=== PATIENT | female | born 1945 | race Caucasian/White ===

== ENCOUNTER → 2016-11-11 | Outpatient (CLI) | payer OTHER ==
[2016-11-11 07:47] LABS: BLOOD GAS BASE EXCESS -1.9 mmol/L (-2-2); BLOOD GAS CARBOXYHEMOGLOBIN 1.6 % (0-4); BLOOD GAS HCO3 22 mmol/L (22-26); BLOOD GAS O2 HGB SATURATION 93 % (90-100); BLOOD GAS PCO2 35 mmHG (38-42); BLOOD GAS PO2 79 mmHG (61-120); BLOOD GAS TOTAL HGB 13.7 G/DL (12.0-16.0); CRITICAL VALUE NO; FIO2 21 %; TEMP CORR TO 98.6
[2016-11-11 07:48] LABS: DRAW SITE RT RADIAL; NUMBER OF ARTERIAL PUNCTURES 1; STAT NO; ULNAR PULSE PRESENT
--- NOTE | 2016-11-12 09:30 | RSPPFT ---
DATE OF PROCEDURE: 11/11/16 COMMENTS: Spirometry with FVC 1.7 at 64% of predicted, FEV1 of 1.4 at 66%, FEV1/FVC ratio is normal. Flow is normal at FEF 25, FEF 50, FEF 75 and FEF 25-75. There is no response after bronchodilator treatment. Lung volumes show residual volume is normal. TLC is decreased. Diffusion capacity is severely decreased. Flow volume loop indicates a restrictive pattern. Room air arterial blood gases show pH of 7.42, PCO2 of 35, PO2 of 79, BiCarb of 22 and O2 Saturation of 93%. 6-minute walk test shows de-saturation with exertion. IMPRESSION: 1. Mild restrictive lung disease. 2. No response after bronchodilator treatment. 3. Lung volumes are slightly decreased. 4. Severe loss in diffusion capacity. 5. Blood gases show normal oxygenation. 6. De-saturation with ambulation.
== END ==
LOC: PHRSP 07:33
PROVIDERS: ATTEND Specialist
DX: J84.10 Pulmonary fibrosis, unspecified (principal)
CPT/HCPCS: 36600; 82805; 94060; 94620; 94726; 94729

== ENCOUNTER 2017-09-21 12:26 | Observation (INO) ==
--- NOTE | 2017-09-21 13:22 | ED ---
HPI General Chief Complaint: Respiratory Symptoms Stated Complaint: SOB Time Seen by Provider: 09/21/17 12:55 Source: patient, RN notes reviewed and old records reviewed Mode of arrival: ambulatory Limitations: no limitations History of Present Illness 72 year old female presents to the emergency department for evaluation of sob, worse with exertion and laying flat that started approximately a month ago. Patient states she was sent by her trampoline team coach, Dr. White to see thoracic surgeon , but does not know the name of who was going to see her. Patient states that she needs an aortic valve replacement. She states that she had a pig valve replacement back in 2010, but is no longer working appropriately. The patient states that she just got clearance from her buffet waiter/waitress, Dr. Francis to have surgery. States she saw her trampoline team coach today who referred her to the emergency department. Patient states that her oxygen level has been going down to 8780% at night. She denies any pain. No fevers or chills. MD Complaint: shortness of breath Onset (ago): month(s) (1) Severity: moderate Consistency/Duration: progressively worsening Relieving factors: rest and upright position Exacerbating factors: lying flat and exertion Known history of: other (valve disease) Related Data Allergies Allergy/AdvReac Type Severity Reaction Status Date / Time No Allergy Information Allergy Unverified 09/21/17 13:12 Available [facility] Medical History Medical History Breast cancer (Acute) Pulmonary fibrosis (Acute) Shortness of breath (Acute) Sleep apnea (Acute) Surgical History Surgical History Aortic valve replaced (Acute) Social History Social History Substance History: No History of Abuse Second Hand Smoke Exposure: No Smoking Status: Never smoker How Often Do You Have a Drink Containing Alcohol: 2 to 4 times a month Recent Travel in [facility] within the Last 8 Weeks: No Recent Out of Country Travel within the Last 8 Weeks: No Immunization History Tetanus Immunization: Unsure Hx Influenza Vaccine This Season: Yes Exam Narrative Exam Narrative: GENERAL: Well-nourished, well-developed female patient, afebrile SKIN: Focused skin assessment warm/dry. HEAD: Normocephalic. Atraumatic EYES: No scleral icterus. No injection or drainage. NECK: Supple, trachea midline. No JVD or lymphadenopathy. CARDIOVASCULAR: Regular rate and rhythm without murmurs, gallops, or rubs. RESPIRATORY: Breath sounds equal bilaterally. No accessory muscle use. Lung sounds are clear to auscultation GASTROINTESTINAL: Abdomen soft, non-tender, nondistended. MUSCULOSKELETAL: No cyanosis, or edema. BACK: Nontender without obvious deformity. No CVA tenderness. Course Initial Documented Vital Signs Temperature 98.2 F 09/21/17 12:39 Pulse Rate 93 H 09/21/17 12:39 Respiratory Rate 18 09/21/17 12:39 Blood Pressure 166/78 H 09/21/17 12:39 Pulse Oximetry 95 09/21/17 12:39 Last Documented Vital Signs Temperature 98.2 F 09/21/17 12:39 Pulse Rate 84 09/21/17 12:43 Respiratory Rate 18 09/21/17 12:43 Blood Pressure 153/82 H 09/21/17 12:43 Pulse Oximetry 97 09/21/17 12:43 Medical Decision Making NEDA Attestation NEDA supervised visit: Yes Attestation: I, Dr. dugan, have reviewed the advance practice practitioner's documentation and am in agreement, met with the patient face to face, made the diagnosis, and the medical decision making was done by me. *My assessment and Findings: 72 y/o female presents with shortness of breath. Outpatient note of critical aortic stenosis. Sent here for further evaluation. Workup reveals significantly elevated troponin. Patient given aspirin and currently pain-free. Discussed with her trampoline team coach and will admit for further care. Patient agrees to plan [facility] Narrative Medical decision making narrative: 72 year old female presents to the emergency department for dyspnea sent by her trampoline team coach, Dr. White. EKG, CBC, CMP, CK, Troponin, Magnesium, BNP, PTT, PT/INR, chest x-ray are ordered and pending. A call is placed to Dr. White. I spoke with the nurse practitioner for Dr. White. She states the patient has severe and needs to be admitted to the hospital with a consult to Dr. Gold ( trampoline team coach executive compensation analyst). Dr. Gold is aware of the patient according to her. EKG shows SR, HR 80, no STEMI, inverted t waves in I, avl. CBC shows slight leukocytosis of . CMP shows no acute abnormality. Magnesium is 2.4. CK is 53. Troponin is 0.95. BNP is 200. PTT is 21.6. PT/INR is 9.9/1.0. Chest x- ray shows no acute findings. Patient is given ASA 324 mg PO and nitro paste 1 inch. Hospitalist is paged for admission. Dr. Shell accepted admission. Differential Diagnosis Differential Diagnosis: CHF vs. ACS vs. pneumonia vs. COPD Medical Records Medical records reviewed: Yes I reviewed the patient's medical records. Lab Data Result diagrams: 09/21/17 13:18 09/21/17 13:18 Lab Results 09/21/17 09/21/17 09/21/17 Range/Units 13:18 13:18 13:18 WBC 11.2 H (4.0-11.0) th/mm3 RBC 4.07 (4.00-5.30) mil/mm3 Hgb 13.5 (11.6-15.3) gm/dL Hct 40.0 (35.0-46.0) % MCV 98.3 (80.0-100.0) fL MCH 33.2 (27.0-34.0) pg MCHC 33.8 (32.0-36.0) % RDW 14.4 (11.6-17.2) % Plt Count 247 (150-450) th/mm3 MPV 9.5 (7.0-11.0) fL Neut % (Auto) 73.1 H (16.0-70.0) % Lymph % (Auto) 16.1 (9.0-44.0) % Snyder % (Auto) 7.7 (0.0-8.0) % Eos % (Auto) 2.1 (0.0-4.0) % Baso % (Auto) 1.0 (0.0-2.0) % Neut # (Auto) 8.2 H (1.8-7.7) th/mm3 Lymph # (Auto) 1.8 (1.0-4.8) th/mm3 Snyder # (Auto) 0.9 (0.0-0.9) th/mm3 Eos # (Auto) 0.2 (0.0-0.4) th/mm3 Baso # (Auto) 0.1 (0.0-0.2) th/mm3 WBC Differential . Differential Comment Auto diff final PT 9.9 (9.8-11.6) sec INR 1.0 Ratio APTT 21.6 L (24.3-30.1) sec Sodium 142 (136-145) meq/L Potassium 4.2 (3.5-5.1) meq/L Chloride 107 (98-107) meq/L Carbon Dioxide 25.1 (21.0-32.0) meq/L Anion Gap 10 (5-15) meq/L BUN 13 (7-18) mg/dL Creatinine 0.95 (0.50-1.00) mg/dL Estimated GFR 58 L (>89) mL/min Random Glucose 93 (74-106) mg/dL Calcium 9.1 (8.5-10.1) mg/dL Magnesium (1.5-2.5) mg/dL Total Bilirubin 0.5 (0.2-1.0) mg/dL AST 24 (15-37) U/L ALT 21 (10-53) U/L Alkaline Phosphatase 135 H (45-117) U/L Total Creatine Kinase (26-192) U/L Troponin I 0.95 H* (0.02-0.05) ng/mL B-Natriuretic Peptide (0-100) pg/mL Total Protein 7.2 (6.4-8.2) g/dL Albumin 3.8 (3.4-5.0) g/dL 09/21/17 09/21/17 Range/Units 13:18 13:18 WBC (4.0-11.0) th/mm3 RBC (4.00-5.30) mil/mm3 Hgb (11.6-15.3) gm/dL Hct (35.0-46.0) % MCV (80.0-100.0) fL MCH (27.0-34.0) pg MCHC (32.0-36.0) % RDW (11.6-17.2) % Plt Count (150-450) th/mm3 MPV (7.0-11.0) fL Neut % (Auto) (16.0-70.0) % Lymph % (Auto) (9.0-44.0) % Snyder % (Auto) (0.0-8.0) % Eos % (Auto) (0.0-4.0) % Baso % (Auto) (0.0-2.0) % Neut # (Auto) (1.8-7.7) th/mm3 Lymph # (Auto) (1.0-4.8) th/mm3 Snyder # (Auto) (0.0-0.9) th/mm3 Eos # (Auto) (0.0-0.4) th/mm3 Baso # (Auto) (0.0-0.2) th/mm3 WBC Differential Differential Comment PT (9.8-11.6) sec INR Ratio APTT (24.3-30.1) sec Sodium (136-145) meq/L Potassium (3.5-5.1) meq/L Chloride (98-107) meq/L Carbon Dioxide (21.0-32.0) meq/L Anion Gap (5-15) meq/L BUN (7-18) mg/dL Creatinine (0.50-1.00) mg/dL Estimated GFR (>89) mL/min Random Glucose (74-106) mg/dL Calcium (8.5-10.1) mg/dL Magnesium 2.4 (1.5-2.5) mg/dL Total Bilirubin (0.2-1.0) mg/dL AST (15-37) U/L ALT (10-53) U/L Alkaline Phosphatase (45-117) U/L Total Creatine Kinase 53 (26-192) U/L Troponin I (0.02-0.05) ng/mL B-Natriuretic Peptide 200 H (0-100) pg/mL Total Protein (6.4-8.2) g/dL Albumin (3.4-5.0) g/dL Imaging Data Radiologist's impression: Chest X-Ray 09/21/17 13:12 CONCLUSION: No acute findings. Discharge Plan Discharge Disposition Patient Disposition: 30 Still Patient Discharge Details Diagnosis: Aortic stenosis, Elevated troponin Physicians Team ED Provider: Nelsy Dugan ED Midlevel Provider: Melly Mckay Primary Care Provider: UNKNOWN, Status ED Status: Admitted Patient
[2017-09-21 13:32] LABS: Baso # (Auto) 0.1 th/mm3 (0.0-0.2); Eos # (Auto) 0.2 th/mm3 (0.0-0.4); Eos % (Auto) 2.1 % (0.0-4.0); Hemoglobin 13.5 gm/dL (11.6-15.3); Lymph # (Auto) 1.8 th/mm3 (1.0-4.8); Lymph % (Auto) 16.1 % (9.0-44.0); Mean Corpuscular HGB Conc 33.8 % (32.0-36.0); Mean Corpuscular Hemoglobin 33.2 pg (27.0-34.0); Mean Corpuscular Volume 98.3 fL (80.0-100.0); Mean Platelet Volume 9.5 fL (7.0-11.0); Mono # (Auto) 0.9 th/mm3 (0.0-0.9); Mono % (Auto) 7.7 % (0.0-8.0); Neut # (Auto) 8.2 th/mm3 (1.8-7.7); Neut % (Auto) 73.1 % (16.0-70.0); Platelet Count 247 th/mm3 (150-450); Red Blood Count 4.07 mil/mm3 (4.00-5.30); Red Cell Distribution Width 14.4 % (11.6-17.2); White Blood Count 11.2 th/mm3 (4.0-11.0)
[2017-09-21 13:58] LABS: Activated Partial Thrombo Time 21.6 sec (24.3-30.1); Prothrombin Time 9.9 sec (9.8-11.6)
[2017-09-21 14:04] LABS: Alanine Aminotransferase 21 U/L (10-53); Albumin 3.8 g/dL (3.4-5.0); Alkaline Phosphatase 135 U/L (45-117); Anion Gap 10 meq/L (5-15); Aspartate Aminotransferase 24 U/L (15-37); Blood Urea Nitrogen 13 mg/dL (7-18); Calcium 9.1 mg/dL (8.5-10.1); Carbon Dioxide 25.1 meq/L (21.0-32.0); Chloride 107 meq/L (98-107); Glomerular Filtration Rate 58 mL/min (>89); Glucose,Random 93 mg/dL (74-106); Sodium 142 meq/L (136-145); Total Protein 7.2 g/dL (6.4-8.2)
[2017-09-21 14:05] LABS: Magnesium 2.4 mg/dL (1.5-2.5); Potassium 4.2 meq/L (3.5-5.1)
[2017-09-21 14:06] LABS: Troponin I 0.95 ng/mL (0.02-0.05)
--- NOTE | 2017-09-21 14:55 | XR ---
EXAM DATE: 09/21/2017 2:20 PM EDT AGE/SEX: 72 years / Female INDICATIONS: Short of breath. Patient complains of cough and shortness of breath. CLINICAL DATA: This is the patient's initial encounter. Patient reports that signs and symptoms have been present for 1 month and indicates a pain score of 5/10. MEDICAL/SURGICAL HISTORY: . Pulmonary Fibrosis. CABG. Open heart in 2010. COMPARISON: POI, XR CHEST PA AND LAT, 07/26/2017. . FINDINGS: Cardiomegaly and median sternotomy wires are identified. There is minimal scarring in the left mid an d left lower lung zones. No consolidation or effusion. . CONCLUSION: No acute findings. Electronically signed by: Chris Lai MD 09/21/2017 2:53 PM EDT
[2017-09-21] MEDS ORDERED: Bisacodyl 10 MG Supp RECTAL PRN (15:39)
[2017-09-21] MEDS ORDERED: Acetaminophen 325 MG Tablet PO PRN (15:39)
[2017-09-21] MEDS ORDERED: Naloxone Inj 0.4 MG/ML Vial IV.PUSH PRN (15:42)
[2017-09-21] MEDS ORDERED: Morphine Sulfate Inj 2 MG/ML Vial IV.PUSH PRN (15:42)
[2017-09-21] MEDS ORDERED: oxyCODONE/Acetaminophen 10/325 Tablet PO PRN (15:42)
[2017-09-21] MEDS ORDERED: Morphine Inj 4 MG/ML Vial IV.PUSH PRN ×2 (15:42)
--- NOTE | 2017-09-21 18:22 | P.HPIM ---
History of Present Illness Service: [facility] Primary Care Physician: UNKNOWN Chief Complaint: Worsening shortness of breath History of Present Illness: Patient is a 72-year-old female who presented emergency department for evaluation of worsening shortness of breath that has been worsened with exertion and worse with lying flat that has been going on for at least the past month. Patient states she was seen by her food production supervisor Dr. White who recommended that she come to the hospital. She was recommended to come to the hospital to see a thoracic surgeon. Patient states she knows she needs an aortic valve replacement. She had previously had a pig valve replacement back in 2010. But this is not working as well anymore. She had a bronchoscopy with Dr. MAIER service, who states that she was the best she is going to be to have any procedures. Patient has recently been diagnosed with pulmonary fibrosis. As well as has recently been treated for breast cancer with radiation. Patient has been seen by myself as well as cardiology today. Has been noted to have decreased oxygenation. This been moderate. And progressively worsening it is relieving with rest and sitting upright. It is worse by laying flat and exertion. Has a known history of aortic valve issues. Past medical history significant for breast cancer as well as pulmonary fibrosis and chronic shortness of breath and sleep apnea. Patient is also recently had cardiac catheterization with clean coronaries. Inpatient Certification: I certify that the inpatient services were ordered in accordance with Medicare regulations governing the order. This includes certification that hospital inpatient services are reasonable and necessary and in the case of services not specified as inpatient-only under 42 CFR 419.22(n), that they are appropriately provided as inpatient services in accordance to with the 2-midnight benchmark under 43 CFR 412.3(e) Estimated Total Length of Stay (Days): 4 Plans for Post Hospital Care: Not yet determined Review of Systems All other systems reviewed negative except as stated in HPI [facility] - History History Provided By: Patient - Medical History Medical History: Medical History (Last Updated 09/21/17 @ 12:55 by Tomasz Sepulveda) Breast cancer Pulmonary fibrosis Shortness of breath Sleep apnea - Surgical History Surgical History: Surgical History (Last Updated 09/21/17 @ 12:55 by Tomasz Sepulveda) Aortic valve replaced - Family History Family History: Family History (Last Updated 09/21/17 @ 18:09 by Alan Shell DO) Other Family history of hypertension - Tobacco History Second Hand Smoke Exposure: No Tobacco Use In Past 30 Days: No Smoking Status: Never smoker - Alcohol History How Often Do You Have a Drink Containing Alcohol: 2 to 4 times a month - Substance Use History Substance History: No History of Abuse - Travel History History of Recent Travel: No Recent Travel in the [place] Within the Last 8 Weeks: No Recent Travel Out of the Country Within the Last 8 Weeks: No - Immunization History Tetanus Immunization: Unsure Hx Influenza Vaccine This Season: Yes Medications and Allergies Active Medications: Active Medications Acetaminophen (Tylenol) 650 mg PO Q4H PRN PRN Reason: Temp > 100.4 Al Hydroxide/Mg Hydroxide (Milk Of Magnesia Liq) 30 ml PO Q12H PRN PRN Reason: Mild Constipation Aspirin (Aspirin) 325 mg PO DAILY PREM Bisacodyl (Dulcolax Supp) 10 mg RECTAL DAILY PRN PRN Reason: SEVERE CONSITIPATION Famotidine (Pepcid) 20 mg PO BID PREM Lactulose (Lactulose Liq) 30 ml PO DAILY PRN PRN Reason: SEVERE CONSITIPATION Morphine Sulfate (Morphine Inj) 2 mg IV.PUSH Q3H PRN PRN Reason: PAIN 3-5; IF UABLE TO TAKE PO Morphine Sulfate (Morphine Inj) 4 mg IV.PUSH Q3H PRN PRN Reason: PAIN 6-10;IF UNABLE TO TAKE PO Morphine Sulfate (Morphine Inj) 4 mg IV.PUSH Q3H PRN PRN Reason: BREAKTHROUGH PAIN Naloxone HCl (Narcan Inj) 0.4 mg IV.PUSH UNSCH PRN PRN Reason: SEE LABEL COMMENTS Nitroglycerin (Nitro-Bid 2% Oint) 1 inch TOPICAL Q6HR [facility] Last Admin: 09/21/17 17:01 Dose: Not Given Nitroglycerin (Nitrostat Sl) 0.4 mg SL Q5M PRN PRN Reason: ANGINA Ondansetron HCl (Zofran Odt) 4 mg PO Q6H PRN PRN Reason: NAUSEA/VOMITING Oxycodone/Acetaminophen (Percocet 10/325 Mg) 1 tab PO Q6H PRN PRN Reason: PAIN SCALE 6 TO 10 Oxycodone/Acetaminophen (Percocet 5/325 Mg) 1 tab PO Q6H PRN PRN Reason: PAIN SCALE 3 TO 5 Senna/Docusate Sodium (Andria-Colace) 1 tab PO BID [facility] Sennosides (Senokot) 17.2 mg PO Q12H PRN PRN Reason: Moderate Constipation Sodium Chloride (Ns Flush) 2 ml IV.FLUSH BID PREM Sodium Chloride (Ns Flush) 2 ml IV.FLUSH PRN PRN PRN Reason: FLUSH AFTER USING IV ACCESS Temazepam (Restoril) 15 mg PO HS PRN PRN Reason: INSOMNIA Allergies Allergy/AdvReac Type Severity Reaction Status Date / Time No Allergy Information Allergy Unverified 09/21/17 13:12 Available Home Medications Medication Instructions Recorded Confirmed Type rivaroxaban [Xarelto] 15 mg PO DAILY 09/21/17 09/21/17 History Exam Vital signs: Vital Signs 09/21/17 12:39 09/21/17 12:43 09/21/17 16:26 Temperature 98.2 F Pulse Rate 93 H 84 83 Respiratory Rate 18 18 18 Blood Pressure 166/78 H 153/82 H 126/78 Pulse Oximetry 95 97 99 09/21/17 16:27 Temperature Pulse Rate Respiratory Rate Blood Pressure Pulse Oximetry 99 Intake & Output 09/20/17 09/21/17 09/21/17 18:59 06:59 18:59 Weight 77.564 kg Narrative: GENERAL: Awake alert and oriented talkative and cooperative appears to be in some moderate distress SKIN: Warm and dry. HEAD: Atraumatic. Normocephalic. EYES: Pupils equal and round. No scleral icterus. No injection or drainage. EOMI ENT: No nasal bleeding or discharge. Mucous membranes pink and moist. Tongue is midline NECK: Trachea midline. No JVD. CARDIOVASCULAR: Regular rate and rhythm. S1-S2 no S3 or S4.. 3 out of 6 murmur RESPIRATORY: No accessory muscle use. Some coarse breath sounds bilaterally. breath sounds equal bilaterally. GASTROINTESTINAL: Abdomen soft, non-tender, nondistended. Hepatic and splenic margins not palpable. MUSCULOSKELETAL: Extremities without clubbing, cyanosis, or edema. No obvious deformities. NEUROLOGICAL: Awake and alert. No obvious cranial nerve deficits. Motor grossly within normal limits. Five out of 5 muscle strength in the arms and legs. Normal speech. PSYCHIATRIC: Appropriate mood and affect; insight and judgment normal. Results - Labs CBC & Chem 7: 09/21/17 13:18 09/21/17 13:18 Labs: Short CBC 07/31/18 Range/Units 13:18 WBC 11.2 H (4.0-11.0) th/mm3 Hgb 13.5 (11.6-15.3) gm/dL Hct 40.0 (35.0-46.0) % Plt Count 247 (150-450) th/mm3 BMP 09/21/17 13:18 Sodium 142 Potassium 4.2 Chloride 107 Carbon Dioxide 25.1 BUN 13 Creatinine 0.95 Calcium 9.1 Cardiac Enzymes 09/21/17 09/21/17 Range/Units 13:18 13:18 Total Creatine Kinase 53 (26-192) U/L Troponin I 0.95 H* (0.02-0.05) ng/mL Liver Function 09/21/17 Range/Units 13:18 Total Bilirubin 0.5 (0.2-1.0) mg/dL AST 24 (15-37) U/L ALT 21 (10-53) U/L Alkaline Phosphatase 135 H (45-117) U/L Albumin 3.8 (3.4-5.0) g/dL - Imaging Impressions Chest X-Ray 09/21/17 13:12 CONCLUSION: No acute findings. Caprini VTE Risk Assessment Caprini VTE Risk Assessment: Moderate/High Risk (score >= 2) Caprini Risk Assessment Model: Point Value = 1 Point Value = 2 Point Value = 3 Point Value = 5 Age 41-60 Minor surgery BMI > 25 kg/m2 Swollen legs Varicose veins or History of unexplained or recurrent spontaneous Oral contraceptives or hormone replacement Sepsis (< 1 month) Serious lung disease, including pneumonia (< 1 month) Abnormal pulmonary function Acute myocardial infarction Congestive heart failure (< 1 month) History of inflammatory bowel disease Medical patient at bed rest Age 61-74 Arthroscopic surgery Major open surgery (> 45 min) Laparoscopic surgery (> 45 min) Malignancy Confined to bed (> 72 hours) Immobilizing plaster cast Central venous access Age >= 75 History of VTE Family history of VTE Factor V Leiden Prothrombin [id number] Lupus anticoagulant Anticardiolipin antibodies Elevated serum homocysteine Heparin-induced thrombocytopenia Other congenital or acquired thrombophilia Stroke (< 1 month) Elective arthroplasty Hip, pelvis, or leg fracture Acute spinal cord injury (< 1 month) Prophylaxis Regimen: Total Risk Factor Score Risk Level Prophylaxis Regimen 0-1 Low Early ambulation 2 Moderate Order ONE of the following: *Sequential Compression Device (SCD) *Heparin 5000 units SQ BID 3-4 Higher Order ONE of the following medications: *Heparin 5000 units SQ TID *Enoxaparin/Lovenox 40 mg SQ daily (WT < 150 kg, CrCl > 30 mL/min) *Enoxaparin/Lovenox 30 mg SQ daily (WT < 150 kg, CrCl > 10-29 mL/min) *Enoxaparin/Lovenox 30 mg SQ BID (WT < 150 kg, CrCl > 30 mL/min) AND/OR *Sequential Compression Device (SCD) 5 or more Highest Order ONE of the following medications: *Heparin 5000 units SQ TID (Preferred with Epidurals) *Enoxaparin/Lovenox 40 mg SQ daily (WT < 150 kg, CrCl > 30 mL/min) *Enoxaparin/Lovenox 30 mg SQ daily (WT < 150 kg, CrCl > 10-29 mL/min) *Enoxaparin/Lovenox 30 mg SQ BID (WT < 150 kg, CrCl > 30 mL/min) AND *Sequential Compression Device (SCD) Assessment and Plan - Plan Severe aortic stenosis will consult cardiology as well as cardiovascular surgery patient may be a candidate for TAVR Pulmonary fibrosis continue on neb treatments as needed and oxygen and Mucinex Congestive heart failure due to severe aortic stenosis Lasix Mild leukocytosis a.m. labs Elevated troponin trend troponins will get a repeat echo I did discuss with cardiology Sleep apnea with chronic oxygen use Incentive spirometry Dyspnea continue with oxygen and Mucinex duo nebs History of breast cancer recently treated with radiation Code Status: Full code Discussed Condition With: RN and patient and emergency room physician and cardiology Discharge Planning: Pending cardiology clearance and cardiovascular surgery
--- NOTE | 2017-09-21 19:33 | MB ---
cc: Jimenez Gold MD, Aalok DATE: 09/21/2017 REFERRING PHYSICIAN: Dr. Alan Shell. CHIEF COMPLAINT: Worsening shortness of breath. HISTORY OF PRESENT ILLNESS: Mrs. Melissa Castro is a very pleasant 72-year-old female. She has a past medical history of severe symptomatic aortic stenosis, status post a bioprosthetic aortic valve in 2010, pulmonary fibrosis, obstructive sleep apnea, history of breast cancer. She has been having progressive worsening dyspnea. I received contact from Dr. White from [facility] and, according to Dr. White, the patient had a normal coronary angiogram approximately 2 weeks ago; however, a transesophageal echocardiogram revealed severe degenerative bioprosthetic aortic valve disease with an aortic valve area of 0.4. The records are currently not available for review. She also has a history of pulmonary fibrosis and has been following with pulmonology. The patient reports that despite multiple readmissions over the past month for shortness of breath where she was diuresed and treated with bronchodilators and underwent a bronchoscopy, she continues to be short of breath. Cardiac workup has revealed that she has now degenerative bioprosthetic aortic valve disease and subsequently she is being referred here for further workup and evaluation. Currently, the patient is on nasal cannula and complains of shortness of breath. PAST MEDICAL HISTORY: 1. Severe symptomatic aortic stenosis. 2. Pulmonary fibrosis. 3. Obstructive sleep apnea. PAST SURGICAL HISTORY: She has a history of a bioprosthetic aortic valve replacement in 2010 (valve type not known currently). FAMILY HISTORY: No sudden cardiac . SOCIAL HISTORY: Occasional alcohol use, nonsmoker. MEDICATIONS AND ALLERGIES: Reviewed in the electronic medical records. PHYSICAL EXAMINATION: VITAL SIGNS: Blood pressure 126/78, heart rate of 83. GENERAL: She is on nasal cannula and appears to be anxious. HEENT: Eyes: No scleral icterus. Oropharynx: Moist mucous membranes. CARDIOVASCULAR: Regular rate and rhythm. Normal S1. There is a 3/6 systolic ejection murmur obscuring S2. LUNGS: Coarse breath sounds at the base of the lungs. ABDOMEN: Soft, nontender, nondistended. EXTREMITIES: Trace edema. NEUROLOGIC: Alert and oriented x3. PSYCHIATRIC: Appropriate affect. LABORATORY DATA: Reviewed in the electronic medical record. Creatinine 0.95. Troponin is 0.95. IMAGING STUDIES: Chest x-ray: No acute findings. ASSESSMENT: 1. Severe degenerative bioprosthetic aortic valve stenosis. 2. Pulmonary fibrosis on nebulizer therapy. 3. Valvular cardiomyopathy. 4. History of recent coronary angiogram that did not show obstructive coronary artery disease. PLAN: I discussed the patient with Dr. White. We will plan to gently diurese the patient, as she has a history of hypotension in the past. We will continue her pulmonary medications as well. We would like to obtain records from [facility] to complete a transcatheter aortic valve replacement workup. I will contact our cardiovascular surgeons and proceed with a heart team approach. We will need a CT chest abdomen and pelvis. I do not believe her elevated troponin is a result of an ischemia driven event and, as such, would not proceed with a repeat coronary angiogram at this time. We will have to assess her candidacy. Thank you for allowing us to participate in the care of Melissa Castro. Please feel free to contact us with any further questions regarding her care. MD KENNEDY Evangelista/ , 06:50 PM , 06:59 PM
[2017-09-21] MEDS ORDERED: Temazepam 15 MG Capsule PO PRN (21:00)
[2017-09-21] MEDS: Senna/Docusate Sodium 8.6/50 MG Tablet PO SCH (21:12)
[2017-09-21] MEDS: guaiFENesin 600 MG ER Tablet PO SCH (21:12)
[2017-09-21] MEDS: Famotidine 20 MG Tablet PO SCH (21:12)
[2017-09-21 21:27] LABS: Troponin I 0.87 ng/mL (0.02-0.05)
[2017-09-22 04:46] LABS: Bilirubin,Urine Negative (Negative); Clarity,Urine Clear (Clear); Color,Urine Yellow (Yellw/Straw); Glucose,Urine (UA) Negative (Negative); Hyaline Casts,Urine 1 /lpf (0-3); Leukocyte Esterase,Urine Negative (Negative); Mucus,Urine Few /lpf (Occasional); Nitrite,Urine Negative (Negative); Specific Gravity,Urine 1.017 (1.002-1.035); Squamous Epithelial Cell,Urine 2 /hpf (0-5)
[2017-09-22 06:20] LABS: Baso # (Auto) 0.1 th/mm3 (0.0-0.2); Baso % (Auto) 1.2 % (0.0-2.0); Eos # (Auto) 0.4 th/mm3 (0.0-0.4); Eos % (Auto) 3.8 % (0.0-4.0); Hematocrit 36.7 % (35.0-46.0); Hemoglobin 12.6 gm/dL (11.6-15.3); Lymph # (Auto) 2.4 th/mm3 (1.0-4.8); Lymph % (Auto) 23.4 % (9.0-44.0); Mean Corpuscular HGB Conc 34.3 % (32.0-36.0); Mean Corpuscular Hemoglobin 33.8 pg (27.0-34.0); Mean Corpuscular Volume 98.7 fL (80.0-100.0); Mean Platelet Volume 9.6 fL (7.0-11.0); Mono # (Auto) 0.8 th/mm3 (0.0-0.9); Neut # (Auto) 6.5 th/mm3 (1.8-7.7); Neut % (Auto) 63.6 % (16.0-70.0); Platelet Count 230 th/mm3 (150-450); Red Blood Count 3.72 mil/mm3 (4.00-5.30); Red Cell Distribution Width 14.4 % (11.6-17.2); White Blood Count 10.2 th/mm3 (4.0-11.0)
[2017-09-22 06:53] LABS: Alanine Aminotransferase 17 U/L (10-53); Alkaline Phosphatase 124 U/L (45-117); Blood Urea Nitrogen 14 mg/dL (7-18); Free T4 (Free Thyroxine) 1.01 ng/dL (0.76-1.46); Phosphorus 4.5 mg/dL (2.5-4.9); Total Protein 6.9 g/dL (6.4-8.2)
[2017-09-22 07:02] LABS: Albumin 3.5 g/dL (3.4-5.0); Anion Gap 8 meq/L (5-15); Aspartate Aminotransferase 23 U/L (15-37); Calcium 8.9 mg/dL (8.5-10.1); Carbon Dioxide 26.4 meq/L (21.0-32.0); Chloride 107 meq/L (98-107); Glomerular Filtration Rate 59 mL/min (>89); Glucose,Random 93 mg/dL (74-106); Magnesium 2.2 mg/dL (1.5-2.5); Sodium 141 meq/L (136-145)
[2017-09-22 07:17] LABS: Creatine Kinase 49 U/L (26-192); Potassium 4.2 meq/L (3.5-5.1)
[2017-09-22] MEDS: Famotidine 20 MG Tablet PO SCH ×2 (08:39→20:24)
[2017-09-22] MEDS: Rivaroxaban 15 MG Tablet PO SCH (08:40)
[2017-09-22] MEDS: Senna/Docusate Sodium 8.6/50 MG Tablet PO SCH ×2 (08:40→20:26)
[2017-09-22] MEDS: guaiFENesin 600 MG ER Tablet PO SCH ×2 (08:40→20:24)
[2017-09-22] MEDS: Aspirin 325 MG Tablet PO SCH (08:40)
--- NOTE | 2017-09-22 10:15 | ECG ---
Date Performed: 09/21/2017 Time Performed: 13:09:35 PTAGE: 72 years EKG: Sinus rhythm WITH OCCASIONAL ECTOPIC PREMATURE COMPLEXES BORDERLINE LEFT AXIS DEVIATION LEFT VENTRICULAR HYPERTRO PHY AND ST-T CHANGE ABNORMAL ECG NO PREVIOUS TRACING DOCTOR: Carolynn Macdonald Interpretating Date/Time 09/22/2017 10:13:41
--- NOTE | 2017-09-22 10:43 | ECHRPT ---
Indication: HHD CONCLUSIONS The left ventricular systolic function is normal with an estimated ejection fraction in the range of 60-65%. Normal left ventricular size. Moderate concentric left ventricular hypertrophy. No regional wall motion abnormalities are present. Mild thickening of the mitral valve leaflets. Trace mitral valve regurgitation. The aortic valve is not well visualized. Severe aortic valve stenosis. Bioprosthetic aortic valve replacement is noted. Aortic valve area is 0.33 cm. Aortic valve mean gradient is 67 mmHg. BP: / HR: Rhythm: Sinus MEASUREMENTS (Male / Female) Normal Values Technical Quality:Fair 2D ECHO LV Diastolic Diameter PLAX 4.3 cm 4.2 - 5.9 / 3.9 - 5.3 cm LV Systolic Diameter PLAX 3.3 cm IVS Diastolic Thickness 1.6 cm 0.6 - 1.0 / 0.6 - 0.9 cm LVPW Diastolic Thickness 1.7 cm 0.6 - 1.0 / 0.6 - 0.9 cm LV Relative Wall Thickness 0.8 RV Internal Dim ED PLAX 2.3 cm LVOT Diameter 1.6 cm LA Systolic Diameter LX 2.8 cm 3.0 - 4.0 / 2.7 - 3.8 cm LV Ejection Fraction MOD 4C 68.2 % LV Ejection Fraction 4C AL 69.4 % M-MODE Aortic Root Diameter MM 1.9 cm AV Cusp Separation MM 1.0 cm DOPPLER AV Peak Velocity 533.0 cm/s AV Peak Gradient 113.6 mmHg AV Mean Gradient 67.0 mmHg AV Velocity Time Integral 115.0 cm LVOT Peak Velocity 110.0 cm/s LVOT Peak Gradient 4.8 mmHg LVOT Velocity Time Integral 18.9 cm AV Area Cont Eq vti 0.3 cm AV Area Cont Eq pk 0.4 cm MV Area PHT 5.2 cm Mitral E Point Velocity 62.2 cm/s Mitral A Point Velocity 117.0 cm/s Mitral E to A Ratio 0.5 LV E' Lateral Velocity 5.8 cm/s Mitral E to LV E' Lateral Ratio 10.8 LV E' Septal Velocity 3.6 cm/s Mitral E to LV E' Septal Ratio 17.2 PV Peak Velocity 73.3 cm/s PV Peak Gradient 2.1 mmHg FINDINGS LEFT VENTRICLE The left ventricular systolic function is normal with an estimated ejection fraction in the range of 60-65%. Normal left ventricular size. Moderate concentric left ventricular hypertrophy. No regional wall motion abnormalities are present. RIGHT VENTRICLE Normal right ventricular size and systolic function. LEFT ATRIUM The left atrial size is normal. RIGHT ATRIUM The right atrial size is normal. ATRIAL SEPTUM Normal atrial septal thickness without atrial level shunting by limited color doppler interrogation. AORTA The aortic root and proximal ascending aorta are normal in size on limited imaging. MITRAL VALVE Mild thickening of the mitral valve leaflets. Trace mitral valve regurgitation. AORTIC VALVE The aortic valve is not well visualized. Bioprosthetic aortic valve replacement is noted. Severe aortic valve stenosis. Aortic valve area is 0.33 cm. Aortic valve mean gradient is 67 mmHg. TRICUSPID VALVE Structurally normal tricuspid valve. No tricuspid valve stenosis or regurgitation. PULMONARY VALVE The pulmonary valve is not well visualized. VESSELS The inferior vena cava is normal in size. PERICARDIUM No pericardial effusion. Mani Zamora MD, FACC (Electronically Signed) Final Date:22 September 2017 10:42
--- NOTE | 2017-09-22 13:53 | P.PNCV ---
- Note Subjective/Hospital Course: pt seen and evaluated, full consult to follow sts data data discussed with pt RISK SCORES About the STS Risk Calculator Procedure: AV Replacement Risk of Mortality: 4.611% Morbidity or Mortality: 21.459% Long Length of Stay: 10.865% Short Length of Stay: 24.318% Permanent Stroke: 1.544% Prolonged Ventilation: 18.5% DSW Infection: 0.242% Renal Failure: 3.406% Reoperation: 8.374% Objective: Vital Signs - 24 hr 09/21/17 16:26 09/21/17 16:27 09/21/17 18:47 Temperature 97.4 F L Pulse Rate 83 77 Respiratory Rate 18 18 Blood Pressure 126/78 132/74 Pulse Oximetry 99 99 94 L 09/21/17 19:00 09/21/17 20:00 09/21/17 21:00 Temperature 97.8 F Pulse Rate 75 84 84 Respiratory Rate 20 Blood Pressure 130/68 Pulse Oximetry 94 L 09/21/17 22:00 09/21/17 22:42 09/21/17 23:00 Temperature Pulse Rate 76 76 72 Respiratory Rate 20 Blood Pressure Pulse Oximetry 98 09/22/17 00:00 09/22/17 01:00 09/22/17 02:00 Temperature 98.5 F Pulse Rate 70 69 64 Respiratory Rate 18 Blood Pressure 124/70 Pulse Oximetry 97 09/22/17 03:00 09/22/17 04:00 09/22/17 05:00 Temperature 98.2 F Pulse Rate 68 82 97 H Respiratory Rate 18 Blood Pressure 106/61 Pulse Oximetry 95 09/22/17 06:00 09/22/17 07:00 09/22/17 08:00 Temperature 98.5 F Pulse Rate 75 79 80 Respiratory Rate 16 Blood Pressure 121/62 Pulse Oximetry 94 L 09/22/17 08:03 09/22/17 09:00 09/22/17 10:00 Temperature Pulse Rate 79 88 85 Respiratory Rate 16 Blood Pressure Pulse Oximetry 94 L 09/22/17 11:00 09/22/17 12:00 09/22/17 13:00 Temperature 97.9 F Pulse Rate 77 82 83 Respiratory Rate 16 Blood Pressure 142/77 H Pulse Oximetry 94 L Labs: Laboratory Results - last 12 hr 09/22/17 09/22/17 09/22/17 04:26 05:25 05:25 WBC 10.2 RBC 3.72 L Hgb 12.6 Hct 36.7 MCV 98.7 MCH 33.8 MCHC 34.3 RDW 14.4 Plt Count 230 MPV 9.6 Neut % (Auto) 63.6 Lymph % (Auto) 23.4 [place] % (Auto) 8.0 Eos % (Auto) 3.8 Baso % (Auto) 1.2 Neut # (Auto) 6.5 Lymph # (Auto) 2.4 [place] # (Auto) 0.8 Eos # (Auto) 0.4 Baso # (Auto) 0.1 WBC Differential . Differential Comment Auto diff final PT 10.0 INR 1.0 Sodium Potassium Chloride Carbon Dioxide Anion Gap BUN Creatinine Estimated GFR Random Glucose Calcium Phosphorus Magnesium Total Bilirubin AST ALT Alkaline Phosphatase Total Creatine Kinase Troponin I Total Protein Albumin TSH Free T4 Urine Color Yellow Urine Clarity Clear Urine pH 5.0 Ur Specific [place] 1.017 Urine Protein Negative Urine Glucose (UA) Negative Urine Ketones Negative Urine Occult Blood Small H Urine Nitrate Negative Urine Bilirubin Negative Urine Urobilinogen Less than 2 Ur Leukocyte Esterase Negative Urine RBC Less than 1 Urine WBC 7 H Ur Squamous Epith Cells 2 Hyaline Casts 1 Urine Mucus Few H Micro UA Comment Culture not ind Urine Culture Comments Culture not ind 09/22/17 05:25 WBC RBC Hgb Hct MCV MCH MCHC RDW Plt Count MPV Neut % (Auto) Lymph % (Auto) [place] % (Auto) Eos % (Auto) Baso % (Auto) Neut # (Auto) Lymph # (Auto) [place] # (Auto) Eos # (Auto) Baso # (Auto) WBC Differential Differential Comment PT INR Sodium 141 Potassium 4.2 Chloride 107 Carbon Dioxide 26.4 Anion Gap 8 BUN 14 Creatinine 0.94 Estimated GFR 59 L Random Glucose 93 Calcium 8.9 Phosphorus 4.5 Magnesium 2.2 Total Bilirubin 0.5 AST 23 ALT 17 Alkaline Phosphatase 124 H Total Creatine Kinase 49 Troponin I 0.90 H* Total Protein 6.9 Albumin 3.5 TSH 1.020 Free T4 1.01 Urine Color Urine Clarity Urine pH Ur Specific [place] Urine Protein Urine Glucose (UA) Urine Ketones Urine Occult Blood Urine Nitrate Urine Bilirubin Urine Urobilinogen Ur Leukocyte Esterase Urine RBC Urine WBC Ur Squamous Epith Cells Hyaline Casts Urine Mucus Micro UA Comment Urine Culture Comments Result Diagrams: 09/22/17 05:25 09/22/17 05:25
--- NOTE | 2017-09-22 15:13 | P.PNCA ---
Subjective Interval history: shortness of breath at night. currently no CP. Physical Exam Vital signs: Vital Signs 09/21/17 16:26 09/21/17 16:27 09/21/17 18:47 Temperature 97.4 F L Pulse Rate 83 77 Respiratory Rate 18 18 Blood Pressure 126/78 132/74 Pulse Oximetry 99 99 94 L 09/21/17 19:00 09/21/17 20:00 09/21/17 21:00 Temperature 97.8 F Pulse Rate 75 84 84 Respiratory Rate 20 Blood Pressure 130/68 Pulse Oximetry 94 L 09/21/17 22:00 09/21/17 22:42 09/21/17 23:00 Temperature Pulse Rate 76 76 72 Respiratory Rate 20 Blood Pressure Pulse Oximetry 98 09/22/17 00:00 09/22/17 01:00 09/22/17 02:00 Temperature 98.5 F Pulse Rate 70 69 64 Respiratory Rate 18 Blood Pressure 124/70 Pulse Oximetry 97 09/22/17 03:00 09/22/17 04:00 09/22/17 05:00 Temperature 98.2 F Pulse Rate 68 82 97 H Respiratory Rate 18 Blood Pressure 106/61 Pulse Oximetry 95 09/22/17 06:00 09/22/17 07:00 09/22/17 08:00 Temperature 98.5 F Pulse Rate 75 79 80 Respiratory Rate 16 Blood Pressure 121/62 Pulse Oximetry 94 L 09/22/17 08:03 09/22/17 09:00 09/22/17 10:00 Temperature Pulse Rate 79 88 85 Respiratory Rate 16 Blood Pressure Pulse Oximetry 94 L 09/22/17 11:00 09/22/17 12:00 09/22/17 13:00 Temperature 97.9 F Pulse Rate 77 82 83 Respiratory Rate 16 Blood Pressure 142/77 H Pulse Oximetry 94 L 09/22/17 14:00 Temperature Pulse Rate 77 Respiratory Rate Blood Pressure Pulse Oximetry Intake & Output 09/21/17 09/22/17 09/22/17 18:59 06:59 18:59 Intake Total 480 / 480 Output Total 400 / 400 Balance 80 / 80 Weight 77.564 kg 77 kg Intake: Oral 480 / 480 Output: Urine 400 / 400 Other: Date of Last Bowel Movement 09/22/17 - Constitutional no acute distress - Routine Respiratory Exam Present: distant breath sounds - Routine Cardiovascular Exam Present: RRR, murmur (3/6 NOVA obscuring S2) - Routine Extremities Exam Present: edema Assessment and Plan - Plan Severe Aortic Stenosis 2/2 to degenerative Bioprosthetic disease Pulmonary Fibrosis Patient slighty improved today. Continue current gentle diuresis. TTE revealed severe . Will obtain outside records including cath (jordan with elevated troponin) and we will continue with TAVR w/up.
--- NOTE | 2017-09-22 15:28 | MB ---
cc: Annie Hutchinson MD DATE: 09/22/2017 HISTORY OF PRESENT ILLNESS: A 72-year-old female with history of severe symptomatic aortic stenosis with minimally invasive aortic valve replacement with a #25 Mosaic ultra porcine heart valve on 06/22/[address] Vicente Powers at [facility] in [place], presented with increasing shortness of breath for the last couple of months. She recently traveled to [facility] in June, developed bronchitis, has been treated for an upper respiratory infection and was on antibiotics, was actually admitted to the hospital with shortness of breath and hypoxemia and was seen later and followed by Dr. Howard's group. Prior to that, she had seen Dr. Skinner, who did a CT scan and she was told she was diagnosed with pulmonary fibrosis. She has not had a lung biopsy at this time. She recently presented to [facility] where she underwent a cardiac catheterization, which showed nonobstructive disease. Per the notes from Dr. Gold; however, it revealed severe degenerative bioprosthetic aortic valve disease with an aortic valve area of 0.4. We are currently trying to obtain the records of the cardiac catheterization, she has had a new echocardiogram which showed an ejection fraction of 60%, moderate LVH, trace mitral valve regurgitation, severe aortic valve stenosis, bioprosthetic aortic valve replacement, aortic valve area of 0.33. The patient still complains of a persistent cough. PAST MEDICAL HISTORY: Paroxysmal atrial fibrillation, severe aortic stenosis, prior history of blood loss anemia after her initial aortic valve surgery. PAST SURGICAL HISTORY: Again include, bioprosthetic aortic valve replacement #25 Mosaic in 2011. Other surgeries include a bronchoscopy. FAMILY HISTORY: Father from an [place]. Brother had coronary artery disease. SOCIAL HISTORY: The patient is , 2 children. Rare alcohol. Smoked for 20 years, quit in 1986, smoked 1/2 a pack per day. REVIEW OF SYSTEMS: GENERAL: No night sweats, fever, heat and cold intolerance. SKIN: No psoriasis, itching or hives. HEENT: No blurred vision, hearing loss. RESPIRATORY: Positive for chronic shortness of breath, cough, nonproductive. CARDIOVASCULAR: No chest pain. No paroxysmal nocturnal dyspnea. No orthopnea. GASTROINTESTINAL: No diarrhea or vomiting. GENITOURINARY: No burning, frequency, urgency. CENTRAL NERVOUS SYSTEM: No history of TIA, CVA or seizure disorder. ENDOCRINOLOGY: No history of diabetes or hypothyroidism. PHYSICAL EXAMINATION: VITAL SIGNS: Blood pressure 140/70, heart rate of 80, afebrile. GENERAL: Alert and oriented, in no acute distress; however, she does get somewhat short of breath with exertion. HEENT: Head is normocephalic, atraumatic. Pupils equal and reactive. Oral mucosa pink, moist. NECK: Supple. No JVD. HEART: Sounds S1, S2, grade 3/6 systolic murmur best noted in the left sternal border. LUNGS: She has got coarse bilateral breath sounds. She has some dry crackles in the bases. LABORATORY DATA: Shows hemoglobin of 12, hematocrit of 36, white cell count of 10.2. Sodium 141, potassium 4.2, BUN 14, creatinine 0.94. Hemoglobin A1c pending. Troponin 0.87, 0.90. BNP of 200. STS risk score 4.61, morbidity and mortality 21. IMPRESSION: This is again, a 72-year-old female with severe aortic stenosis, prior aortic valve replacement with a #25 Mosaic ultra porcine heart valve via minimally invasive sternal approach. Her valve area now registering 0.33 cm2 with a mean gradient of 67 mmHg, normal ejection fraction. Clearly, the patient is symptomatic with her failing aortic valve. Her STS risk of mortality 4.6. The frailty score is pending. Her other risk factors included pulmonary fibrosis, moderate to severe lung disease, recent bronchitis. RECOMMENDATIONS: For transcatheter aortic valve replacement. Dictated by FLORES Weiner MD MICHELE Hidalgo/REHAN , 01:52 PM , 02:04 PM
--- NOTE | 2017-09-22 15:34 | P.PNIM ---
Subjective Interval history: Patient is a 72-year-old female who presented emergency department for evaluation of worsening shortness of breath that has been worsened with exertion and worse with lying flat that has been going on for at least the past month. Patient states she was seen by her carriage dogger Dr. White who recommended that she come to the hospital. She was recommended to come to the hospital to see a thoracic surgeon. Patient states she knows she needs an aortic valve replacement. She had previously had a pig valve replacement back in 2010. But this is not working as well anymore. She had a bronchoscopy with Dr. MAIER service, who states that she was the best she is going to be to have any procedures. Patient has recently been diagnosed with pulmonary fibrosis. As well as has recently been treated for breast cancer with radiation. Patient has been seen by myself as well as cardiology today. Has been noted to have decreased oxygenation. This been moderate. And progressively worsening it is relieving with rest and sitting upright. It is worse by laying flat and exertion. Has a known history of aortic valve issues. Past medical history significant for breast cancer as well as pulmonary fibrosis and chronic shortness of breath and sleep apnea. Patient is also recently had cardiac catheterization with clean coronaries. 8-1 HAVING TAVR WORK UP SEEN BY CARDIO AND CARDIOVASCULAR SURGERY AM LABS BREATHING A LITTLE BETTER HAD REPEAT ECHO HERE Physical Exam Vital signs: Vital Signs 09/21/17 16:26 09/21/17 16:27 09/21/17 18:47 Temperature 97.4 F L Pulse Rate 83 77 Respiratory Rate 18 18 Blood Pressure 126/78 132/74 Pulse Oximetry 99 99 94 L 09/21/17 19:00 09/21/17 20:00 09/21/17 21:00 Temperature 97.8 F Pulse Rate 75 84 84 Respiratory Rate 20 Blood Pressure 130/68 Pulse Oximetry 94 L 09/21/17 22:00 09/21/17 22:42 09/21/17 23:00 Temperature Pulse Rate 76 76 72 Respiratory Rate 20 Blood Pressure Pulse Oximetry 98 09/22/17 00:00 09/22/17 01:00 09/22/17 02:00 Temperature 98.5 F Pulse Rate 70 69 64 Respiratory Rate 18 Blood Pressure 124/70 Pulse Oximetry 97 09/22/17 03:00 09/22/17 04:00 09/22/17 05:00 Temperature 98.2 F Pulse Rate 68 82 97 H Respiratory Rate 18 Blood Pressure 106/61 Pulse Oximetry 95 09/22/17 06:00 09/22/17 07:00 09/22/17 08:00 Temperature 98.5 F Pulse Rate 75 79 80 Respiratory Rate 16 Blood Pressure 121/62 Pulse Oximetry 94 L 09/22/17 08:03 09/22/17 09:00 09/22/17 10:00 Temperature Pulse Rate 79 88 85 Respiratory Rate 16 Blood Pressure Pulse Oximetry 94 L 09/22/17 11:00 09/22/17 12:00 09/22/17 13:00 Temperature 97.9 F Pulse Rate 77 82 83 Respiratory Rate 16 Blood Pressure 142/77 H Pulse Oximetry 94 L 09/22/17 15:00 Temperature Pulse Rate 77 Respiratory Rate Blood Pressure Pulse Oximetry Intake & Output 09/21/17 09/22/17 09/22/17 18:59 06:59 18:59 Intake Total 480 / 480 Output Total 400 / 400 Balance 80 / 80 Weight 77.564 kg 77 kg Intake: Oral 480 / 480 Output: Urine 400 / 400 Other: Date of Last Bowel Movement 09/22/17 Narrative: GENERAL: Awake alert and oriented talkative and cooperative appears to be in some moderate distress SKIN: Warm and dry. HEAD: Atraumatic. Normocephalic. EYES: Pupils equal and round. No scleral icterus. No injection or drainage. EOMI ENT: No nasal bleeding or discharge. Mucous membranes pink and moist. Tongue is midline NECK: Trachea midline. No JVD. CARDIOVASCULAR: Regular rate and rhythm. S1-S2 no S3 or S4.. 3 out of 6 murmur RESPIRATORY: No accessory muscle use. Some coarse breath sounds bilaterally. breath sounds equal bilaterally. GASTROINTESTINAL: Abdomen soft, non-tender, nondistended. Hepatic and splenic margins not palpable. MUSCULOSKELETAL: Extremities without clubbing, cyanosis, or edema. No obvious deformities. NEUROLOGICAL: Awake and alert. No obvious cranial nerve deficits. Motor grossly within normal limits. Five out of 5 muscle strength in the arms and legs. Normal speech. PSYCHIATRIC: Appropriate mood and affect; insight and judgment normal. Results - Labs CBC & Chem 7: 09/22/17 05:25 09/22/17 05:25 Laboratory Results - last 24 hr 09/21/17 09/21/17 09/22/17 20:04 20:04 04:26 WBC RBC Hgb Hct MCV MCH MCHC RDW Plt Count MPV Neut % (Auto) Lymph % (Auto) [place] % (Auto) Eos % (Auto) Baso % (Auto) Neut # (Auto) Lymph # (Auto) [place] # (Auto) Eos # (Auto) Baso # (Auto) WBC Differential Differential Comment PT INR Sodium Potassium Chloride Carbon Dioxide Anion Gap BUN Creatinine Estimated GFR POC Glucose 140 H Random Glucose Calcium Phosphorus Magnesium Total Bilirubin AST ALT Alkaline Phosphatase Total Creatine Kinase 43 Troponin I 0.87 H* Total Protein Albumin TSH Free T4 Urine Color Yellow Urine Clarity Clear Urine pH 5.0 Ur Specific [place] 1.017 Urine Protein Negative Urine Glucose (UA) Negative Urine Ketones Negative Urine Occult Blood Small H Urine Nitrate Negative Urine Bilirubin Negative Urine Urobilinogen Less than 2 Ur Leukocyte Esterase Negative Urine RBC Less than 1 Urine WBC 7 H Ur Squamous Epith Cells 2 Hyaline Casts 1 Urine Mucus Few H Micro UA Comment Culture not ind Urine Culture Comments Culture not ind 09/22/17 09/22/17 09/22/17 05:25 05:25 05:25 WBC 10.2 RBC 3.72 L Hgb 12.6 Hct 36.7 MCV 98.7 MCH 33.8 MCHC 34.3 RDW 14.4 Plt Count 230 MPV 9.6 Neut % (Auto) 63.6 Lymph % (Auto) 23.4 [place] % (Auto) 8.0 Eos % (Auto) 3.8 Baso % (Auto) 1.2 Neut # (Auto) 6.5 Lymph # (Auto) 2.4 [place] # (Auto) 0.8 Eos # (Auto) 0.4 Baso # (Auto) 0.1 WBC Differential . Differential Comment Auto diff final PT 10.0 INR 1.0 Sodium 141 Potassium 4.2 Chloride 107 Carbon Dioxide 26.4 Anion Gap 8 BUN 14 Creatinine 0.94 Estimated GFR 59 L POC Glucose Random Glucose 93 Calcium 8.9 Phosphorus 4.5 Magnesium 2.2 Total Bilirubin 0.5 AST 23 ALT 17 Alkaline Phosphatase 124 H Total Creatine Kinase 49 Troponin I 0.90 H* Total Protein 6.9 Albumin 3.5 TSH 1.020 Free T4 1.01 Urine Color Urine Clarity Urine pH Ur Specific [place] Urine Protein Urine Glucose (UA) Urine Ketones Urine Occult Blood Urine Nitrate Urine Bilirubin Urine Urobilinogen Ur Leukocyte Esterase Urine RBC Urine WBC Ur Squamous Epith Cells Hyaline Casts Urine Mucus Micro UA Comment Urine Culture Comments - Imaging Chest X-Ray 09/21/17 13:12 CONCLUSION: No acute findings. Assessment and Plan - Plan Severe aortic stenosis will consult cardiology as well as cardiovascular surgery patient may be a candidate for TAVR-IN PROCESS OF BEING WORKED UP Pulmonary fibrosis continue on neb treatments as needed and oxygen and Mucinex Congestive heart failure due to severe aortic stenosis Lasix LOW DOSE IV Mild leukocytosis a.m. labs Elevated troponin trend troponins will get a repeat echo I did discuss with cardiology AGAIN TODAY 8-1 Sleep apnea with chronic oxygen use Incentive spirometry Dyspnea continue with oxygen and Mucinex duo nebs History of breast cancer recently treated with radiation DVT AND GI PROPHYLAXIS Code Status: FULL CODE Discussed Condition With: RN AND PT AND CARDIOLOGY AND CM Discharge Planning: Pending cardiology clearance and cardiovascular surgery
[2017-09-22 16:37] LABS: Hemoglobin A1c 4.9 % (4.3-6.0)
--- NOTE | 2017-09-22 17:17 | ECG ---
Date Performed: 09/21/2017 Time Performed: 22:26:30 PTAGE: 72 years EKG: Sinus rhythm with PVC(s) Cannot rule out anterior infarct - age undetermined LVH with secondary repolarization ab normality Inferior/lateral ST-T changes may be due to hypertrophy and/or ischemia Abnormal ECG PREVIOUS TRACING : 09/21/2017 13.09 Since the previous tracing, no significant change noted DOCTOR: Carolynn Macdonald Interpretating Date/Time 09/22/2017 17:16:48
--- NOTE | 2017-09-22 18:28 | CT ---
EXAM DATE: 09/22/2017 5:50 PM EDT AGE/SEX: 72 years / Female INDICATIONS: Aortic valve replacement CLINICAL DATA: This is the patient's initial encounter. Patient reports that signs and symptoms have been present for 1 day and indicates a pain score of 1/10. MEDICAL/SURGICAL HISTORY: Carcinoma, breast. Hypertension. pulmonary fibrosis CABG. RADIATION DOSE: 11.87 CTDI (mGy) COMPARISON: No prior exams available for comparison. TECHNIQUE: Volumetric scanning was performed using a multi-row detector CT scanner during bolus infu wyatt of 90 ml Omnipaque 350 (iohexol) nonionic water-soluble contrast as a single exam dose. The da ta was post processed with a variety of visualization algorithms including full volume maximum intens ity projection, multi-planar sliding thin slab reformation, curved planar reformation, and surface re ndering techniques. Using automated exposure control and adjustment of the mA and/or kV according to patient size, radiation dose was kept as low as reasonably achievable to obtain optimal diagnostic q uality images. DICOM format image data is available electronically for review and comparison. FINDINGS: CARDIAC: The patient is post median sternotomy. The exam demonstrates moderate diffuse atheroscleroti c plaquing of the coronary arteries. The exam does demonstrate a right dominant system. AORTIC ROOT/VALVE: The examination demonstrates fairly diffuse calcification of the aortic annulus and valvular leaflets. There is a tricuspid aortic valve. The aortic root measures 3.1 cm. The tubula r portion of the ascending aorta measures 3.4 cm. THORACIC AORTA: There is bovine branching of the great vessels from the arch. The origins of the gre at vessels are widely patent. The aortic arch is normal in caliber with a maximum dimension of 2.5 cm . There is only minimal atherosclerotic plaquing. No significant mural thrombus is identified. The de scending thoracic aorta is normal in caliber throughout its course. Again only minimal atheroscleroti c plaquing is present. ABDOMINAL AORTA: The celiac and SMA origins are widely patent. There are single renal arteries bilat erally. There is ostial plaquing seen bilaterally in the renal arteries. They do appear adequate in c aliber. The infrarenal aorta demonstrates only minimal atherosclerotic plaquing and is normal in brittney radha throughout its course measuring approximately 1.3 cm. PELVIC CIRCULATION: The common iliac, internal iliac and external iliac circulation is widely patent throughout its course. The common femoral on the right demonstrates a small area of induration sugge sting recent catheterization. It is adequate in caliber throughout. The left common femoral is adequa te in caliber. The external iliacs measure approximate 7 mm in maximum dimension bilaterally. THORAX: Imaging through the pulmonary parenchyma demonstrates moderate interstitial fibrotic changes . No suspicious mass lesions are seen. No pericardial or pleural effusion is identified. No significa nt hilar or mediastinal adenopathy is present. ABDOMEN: The solid organs of the abdomen are grossly intact. There is no retroperitoneal adenopathy. No free air free fluid is visualized. PELVIS: There is no free fluid within the pelvis. No iliac or inguinal adenopathy is present. There are degenerative changes within the lower lumbar spine. CONCLUSION: 1. Fairly extensive calcification of the aortic annulus and valvular leaflets. 2. The aortic root measures 3.1 cm in size. 3. The tubular portion of the ascending aorta measures 3.4 cm. Electronically signed by: Hans Mckinley MD 09/22/2017 6:27 PM EDT
[2017-09-23 06:25] LABS: Albumin 3.3 g/dL (3.4-5.0); Anion Gap 11 meq/L (5-15); Aspartate Aminotransferase 17 U/L (15-37); Blood Urea Nitrogen 12 mg/dL (7-18); Calcium 8.8 mg/dL (8.5-10.1); Carbon Dioxide 22.4 meq/L (21.0-32.0); Chloride 106 meq/L (98-107); Glomerular Filtration Rate 70 mL/min (>89); Glucose,Random 85 mg/dL (74-106); Magnesium 2.1 mg/dL (1.5-2.5); Potassium 3.8 meq/L (3.5-5.1)
[2017-09-23 06:28] LABS: Alanine Aminotransferase 16 U/L (10-53); Alkaline Phosphatase 124 U/L (45-117); Phosphorus 4.6 mg/dL (2.5-4.9); Total Protein 6.7 g/dL (6.4-8.2)
[2017-09-23 06:30] LABS: Sodium 139 meq/L (136-145)
[2017-09-23 06:58] LABS: Baso # (Auto) 0.1 th/mm3 (0.0-0.2); Baso % (Auto) 1.1 % (0.0-2.0); Eos # (Auto) 0.5 th/mm3 (0.0-0.4); Eos % (Auto) 4.7 % (0.0-4.0); Hematocrit 39.6 % (35.0-46.0); Hemoglobin 13.2 gm/dL (11.6-15.3); Lymph # (Auto) 2.4 th/mm3 (1.0-4.8); Lymph % (Auto) 22.2 % (9.0-44.0); Mean Corpuscular HGB Conc 33.3 % (32.0-36.0); Mean Corpuscular Hemoglobin 33.2 pg (27.0-34.0); Mean Corpuscular Volume 99.6 fL (80.0-100.0); Mean Platelet Volume 9.9 fL (7.0-11.0); Mono # (Auto) 0.8 th/mm3 (0.0-0.9); Mono % (Auto) 7.8 % (0.0-8.0); Neut % (Auto) 64.2 % (16.0-70.0); Platelet Count 218 th/mm3 (150-450); Red Blood Count 3.98 mil/mm3 (4.00-5.30); Red Cell Distribution Width 14.3 % (11.6-17.2); White Blood Count 10.9 th/mm3 (4.0-11.0)
[2017-09-23] MEDS: Rivaroxaban 15 MG Tablet PO SCH (09:15)
[2017-09-23] MEDS: Senna/Docusate Sodium 8.6/50 MG Tablet PO SCH (09:15)
[2017-09-23] MEDS: Famotidine 20 MG Tablet PO SCH (09:15)
[2017-09-23] MEDS: guaiFENesin 600 MG ER Tablet PO SCH (09:16)
[2017-09-23] MEDS: Aspirin 325 MG Tablet PO SCH (09:16)
--- NOTE | 2017-09-23 10:36 | P.CON ---
History of Present Illness Service: Cardiothoracic surgery Consult date: 09/23/17 Requesting Physician: Alan Shell Reason for Consult: Recurrent aortic stenosis Primary Care Provider: UNKNOWN Chief Complaint: Worsening shortness of breath History of Present Illness: Ms. Castro is a very pleasant 72-year-old female with a known history of aortic stenosis. She is status post previous aortic valve replacement through a median sternotomy in 2010 at which time she underwent placement of a 25 mm mosaic tissue valve. She now presents with recurrent symptoms of progressive shortness of breath. Patient has been seen by Dr. 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 Coronary angiography does not reveal any epicardial coronary artery disease. She was seen by Dr. Sepulveda for evaluation of aortic valve therapy and his impression is that she will best be served with a TAVR procedure. I am now seeing her for a second surgical opinion in regards to her aortic valve pathology. At the present time she remains chest pain-free, hemodynamically stable with no evidence of progressive decompensation. Review of Systems All other systems reviewed negative except as stated in HPI PMFSH - History History Provided By: Patient - Medical History Medical History: Medical History (Last Reviewed 09/23/17 @ 07:59 by Irlanda Avery) Breast cancer Pulmonary fibrosis Shortness of breath Sleep apnea - Surgical History Surgical History: Surgical History (Last Reviewed 09/23/17 @ 07:59 by Irlanda Avery) Aortic valve replaced - Family History Family History: Family History (Last Updated 09/21/17 @ 18:09 by Alan Shell, DO) Other Family history of hypertension - Tobacco History Second Hand Smoke Exposure: No Tobacco Use In Past 30 Days: No Smoking Status: Never smoker - Alcohol History How Often Do You Have a Drink Containing Alcohol: 2 to 4 times a month - Substance Use History Substance History: No History of Abuse - Travel History History of Recent Travel: No Recent Travel in the [place] Within the Last 8 Weeks: No Recent Travel Out of the Country Within the Last 8 Weeks: No - Immunization History Tetanus Immunization: Unsure Hx Influenza Vaccine This Season: Yes Medications and Allergies Active Medications: Active Medications Acetaminophen (Tylenol) 650 mg PO Q4H PRN PRN Reason: Temp > 100.4, PADILLA Last Admin: 09/22/17 05:28 Dose: 650 mg Al Hydroxide/Mg Hydroxide (Milk Of Magnesia Liq) 30 ml PO Q12H PRN PRN Reason: Mild Constipation Albuterol (Duoneb Neb (Mi)) 1 ampul NEB Q6HR WHILE AWAKE NEB [facility] Last Admin: 09/23/17 07:59 Dose: 1 ampul Albuterol (Duoneb Neb (Prn)) 1 ampul NEB Q2HR NEB PRN PRN Reason: SHORTNESS OF BREATH Aspirin (Aspirin) 325 mg PO DAILY [facility] Last Admin: 09/23/17 09:16 Dose: 325 mg Bisacodyl (Dulcolax Supp) 10 mg RECTAL DAILY PRN PRN Reason: SEVERE CONSITIPATION Famotidine (Pepcid) 20 mg PO BID [facility] Last Admin: 09/23/17 09:15 Dose: 20 mg Furosemide (Lasix Inj) 20 mg IV.PUSH BID@0900,1800 [facility] Last Admin: 09/23/17 09:15 Dose: 20 mg Guaifenesin (Mucinex Er) 600 mg PO BID [facility] Last Admin: 09/23/17 09:16 Dose: 600 mg Lactulose (Lactulose Liq) 30 ml PO DAILY PRN PRN Reason: SEVERE CONSITIPATION Morphine Sulfate (Morphine Inj) 2 mg IV.PUSH Q3H PRN PRN Reason: PAIN 3-5; IF UABLE TO TAKE PO Morphine Sulfate (Morphine Inj) 4 mg IV.PUSH Q3H PRN PRN Reason: PAIN 6-10;IF UNABLE TO TAKE PO Morphine Sulfate (Morphine Inj) 4 mg IV.PUSH Q3H PRN PRN Reason: BREAKTHROUGH PAIN Naloxone HCl (Narcan Inj) 0.4 mg IV.PUSH UNSCH PRN PRN Reason: SEE LABEL COMMENTS Nitroglycerin (Nitro-Bid 2% Oint) 1 inch TOPICAL Q6HR [facility] Last Admin: 09/23/17 05:33 Dose: Not Given Nitroglycerin (Nitrostat Sl) 0.4 mg SL Q5M PRN PRN Reason: ANGINA Ondansetron HCl (Zofran Odt) 4 mg PO Q6H PRN PRN Reason: NAUSEA/VOMITING Oxycodone/Acetaminophen (Percocet 10/325 Mg) 1 tab PO Q6H PRN PRN Reason: PAIN SCALE 6 TO 10 Oxycodone/Acetaminophen (Percocet 5/325 Mg) 1 tab PO Q6H PRN PRN Reason: PAIN SCALE 3 TO 5 Rivaroxaban (Xarelto) 15 mg PO DAILY [facility] Last Admin: 09/23/17 09:15 Dose: 15 mg Senna/Docusate Sodium (Andria-Colace) 1 tab PO BID [facility] Last Admin: 09/23/17 09:15 Dose: 1 tab Sennosides (Senokot) 17.2 mg PO Q12H PRN PRN Reason: Moderate Constipation Sodium Chloride (Ns Flush) 2 ml IV.FLUSH BID [facility] Last Admin: 09/23/17 09:16 Dose: 2 ml Sodium Chloride (Ns Flush) 2 ml IV.FLUSH PRN PRN PRN Reason: FLUSH AFTER USING IV ACCESS Temazepam (Restoril) 15 mg PO HS PRN PRN Reason: INSOMNIA Allergies Allergy/AdvReac Type Severity Reaction Status Date / Time No Allergy Information Allergy Verified 09/22/17 09:48 Available Home Medications Medication Instructions Recorded Confirmed Type anastrozole 1 mg PO DAILY 09/21/17 09/22/17 History pravastatin 40 mg PO DAILY 09/21/17 09/22/17 History rivaroxaban [Xarelto] 20 mg PO DAILY 09/21/17 09/22/17 History levofloxacin 500 mg PO DAILY 09/22/17 09/22/17 History Physical Exam Vital signs: Vital Signs 09/22/17 11:00 09/22/17 12:00 09/22/17 13:00 Temperature 97.9 F Pulse Rate 77 82 83 Respiratory Rate 16 Blood Pressure 142/77 H Pulse Oximetry 94 L 09/22/17 15:00 09/22/17 15:45 09/22/17 15:47 Temperature 98.0 F Pulse Rate 77 79 80 Respiratory Rate 18 Blood Pressure 116/94 H Pulse Oximetry 94 L 09/22/17 17:00 09/22/17 18:00 09/22/17 19:00 Temperature Pulse Rate 86 88 91 H Respiratory Rate Blood Pressure Pulse Oximetry 09/22/17 19:38 09/22/17 20:00 09/22/17 21:00 Temperature 97.6 F Pulse Rate 84 96 H 92 H Respiratory Rate 18 20 Blood Pressure 123/73 Pulse Oximetry 96 95 09/22/17 22:00 09/22/17 23:00 09/23/17 00:00 Temperature 98.2 F Pulse Rate 74 71 70 Respiratory Rate 18 Blood Pressure 124/68 Pulse Oximetry 98 09/23/17 01:00 09/23/17 02:00 09/23/17 03:00 Temperature Pulse Rate 74 74 67 Respiratory Rate Blood Pressure Pulse Oximetry 09/23/17 04:00 09/23/17 05:00 09/23/17 06:00 Temperature 98.1 F Pulse Rate 68 72 73 Respiratory Rate 16 Blood Pressure 120/66 Pulse Oximetry 97 09/23/17 07:00 09/23/17 08:00 09/23/17 09:00 Temperature Pulse Rate 67 78 84 Respiratory Rate 12 Blood Pressure Pulse Oximetry 93 L Intake & Output 09/22/17 09/23/17 09/23/17 18:59 06:59 18:59 Intake Total 720 / 720 120 / 120 Output Total 1400 / 1400 1400 / 1400 Balance -680 / -680 -1280 / -1280 Weight 75.5 kg Intake: Oral 720 / 720 120 / 120 Output: Urine 1400 / 1400 1400 / 1400 Other: Date of Last Bowel Movement 09/22/17 - Constitutional no acute distress - Routine HEENT Exam Head: Present: normocephalic, atraumatic ENT: Present: mucous membranes moist - Routine Neck Exam Present: supple, full ROM. Absent: JVD, carotid bruit - Routine Respiratory Exam Present: CTA bilaterally - Routine Cardiovascular Exam Present: RRR, S1, S2, murmur. Absent: JVD - Detailed Cardiovascular Exam: Murmur 1 Type: Present: holosystolic Location: Present: right sternal border Characteristics: Present: crescendo Comments: Well-healed upper median sternotomy incision with no evidence of sternal instability or malunion. - Routine Abdominal Exam Present: soft, normoactive bowel sounds. Absent: tenderness, distended, rebound , guarding - Routine Extremities Exam Present: full ROM, pulses intact, normal capillary refill. Absent: cyanosis, clubbing, edema Comments: Well-healed right groin incision from previous cannulation site - Routine Skin Exam Present: intact. Absent: cyanosis, erythema - Routine Neurological Exam Present: alert, oriented X3, CN II-XII intact. Absent: sensory deficit, motor deficit - Routine Psychiatric Exam Present: normal affect, normal thought process, good insight, good judgment Assessment and Plan - Assessment (1) Aortic stenosis Code(s): I35.0 - Nonrheumatic aortic (valve) stenosis Status: Acute (2) Pulmonary fibrosis Code(s): J84.10 - Pulmonary fibrosis, unspecified Status: Acute - Plan The clinical and ECHO findings were discussed in detail with the patient and family. Therapeutic options available including TAVR versus SAVR was discussed. I agree that she will maximally benefit from TAVR given her frailty and significant medical comorbidities including reoperation. The risks, complications including but not limited to bleeding, infection, stroke, myocardial injury and , and benefits of the procedure were discussed in details and all questions answered. The patient understands the provided information and agrees to proceed with the planned operation. Proceed with TAVR. Thank you allowing me to participate in the care of this patient. (1) Aortic stenosis Qualifiers: Cardiac valve disease etiology: etiology unspecified Qualified Code(s): I35.0 - Nonrheumatic aortic (valve) stenosis
[2017-09-23 13:54] VITALS: O2SAT 95
--- NOTE | 2017-09-23 14:57 | P.PNIM ---
Subjective Interval history: Patient is a 72-year-old female who presented emergency department for evaluation of worsening shortness of breath that has been worsened with exertion and worse with lying flat that has been going on for at least the past month. Patient states she was seen by her dental hygiene teacher Dr. White who recommended that she come to the hospital. She was recommended to come to the hospital to see a thoracic surgeon. Patient states she knows she needs an aortic valve replacement. She had previously had a pig valve replacement back in 2010. But this is not working as well anymore. She had a bronchoscopy with Dr. MAIER service, who states that she was the best she is going to be to have any procedures. Patient has recently been diagnosed with pulmonary fibrosis. As well as has recently been treated for breast cancer with radiation. Patient has been seen by myself as well as cardiology today. Has been noted to have decreased oxygenation. This been moderate. And progressively worsening it is relieving with rest and sitting upright. It is worse by laying flat and exertion. Has a known history of aortic valve issues. Past medical history significant for breast cancer as well as pulmonary fibrosis and chronic shortness of breath and sleep apnea. Patient is also recently had cardiac catheterization with clean coronaries. 8-1 HAVING TAVR WORK UP SEEN BY CARDIO AND CARDIOVASCULAR SURGERY AM LABS BREATHING A LITTLE BETTER HAD REPEAT ECHO HERE 8-2 HAS BEEN CLEARED BY ALL FOR DC DC TO HOME FOLLOW UP WITH PCP FOLLOW UP WITH [facility] ON NEXT WEDNESDAY NEEDS HOME OXYGEN 2L BY NAKUL ODEN RN AND C[facility] AND [facility] AND CM AND PT Physical Exam Vital signs: Vital Signs 09/22/17 15:00 09/22/17 15:45 09/22/17 15:47 Temperature 98.0 F Pulse Rate 77 79 80 Respiratory Rate 18 Blood Pressure 116/94 H Pulse Oximetry 94 L Pulse Oximetry [Exertion on Room Air] Pulse Oximetry [Exertion with Oxygen] Pulse Oximetry [Resting on Room Air] Pulse Oximetry [Resting with Oxygen] 09/22/17 17:00 09/22/17 18:00 09/22/17 19:00 Temperature Pulse Rate 86 88 91 H Respiratory Rate Blood Pressure Pulse Oximetry Pulse Oximetry [Exertion on Room Air] Pulse Oximetry [Exertion with Oxygen] Pulse Oximetry [Resting on Room Air] Pulse Oximetry [Resting with Oxygen] 09/22/17 19:38 09/22/17 20:00 09/22/17 21:00 Temperature 97.6 F Pulse Rate 84 96 H 92 H Respiratory Rate 18 20 Blood Pressure 123/73 Pulse Oximetry 96 95 Pulse Oximetry [Exertion on Room Air] Pulse Oximetry [Exertion with Oxygen] Pulse Oximetry [Resting on Room Air] Pulse Oximetry [Resting with Oxygen] 09/22/17 22:00 09/22/17 23:00 09/23/17 00:00 Temperature 98.2 F Pulse Rate 74 71 70 Respiratory Rate 18 Blood Pressure 124/68 Pulse Oximetry 98 Pulse Oximetry [Exertion on Room Air] Pulse Oximetry [Exertion with Oxygen] Pulse Oximetry [Resting on Room Air] Pulse Oximetry [Resting with Oxygen] 09/23/17 01:00 09/23/17 02:00 09/23/17 03:00 Temperature Pulse Rate 74 74 67 Respiratory Rate Blood Pressure Pulse Oximetry Pulse Oximetry [Exertion on Room Air] Pulse Oximetry [Exertion with Oxygen] Pulse Oximetry [Resting on Room Air] Pulse Oximetry [Resting with Oxygen] 09/23/17 04:00 09/23/17 05:00 09/23/17 06:00 Temperature 98.1 F Pulse Rate 68 72 73 Respiratory Rate 16 Blood Pressure 120/66 Pulse Oximetry 97 Pulse Oximetry [Exertion on Room Air] Pulse Oximetry [Exertion with Oxygen] Pulse Oximetry [Resting on Room Air] Pulse Oximetry [Resting with Oxygen] 09/23/17 07:00 09/23/17 08:00 09/23/17 09:00 Temperature 97.8 F Pulse Rate 67 81 84 Respiratory Rate 24 Blood Pressure 121/65 Pulse Oximetry 92 L Pulse Oximetry [Exertion on Room Air] Pulse Oximetry [Exertion with Oxygen] Pulse Oximetry [Resting on Room Air] Pulse Oximetry [Resting with Oxygen] 09/23/17 10:00 09/23/17 11:00 09/23/17 12:00 Temperature 98.1 F Pulse Rate 94 H 79 78 Respiratory Rate 24 Blood Pressure 110/58 L Pulse Oximetry 95 Pulse Oximetry [Exertion on Room Air] Pulse Oximetry [Exertion with Oxygen] Pulse Oximetry [Resting on Room Air] Pulse Oximetry [Resting with Oxygen] 09/23/17 13:00 09/23/17 13:31 09/23/17 13:58 Temperature Pulse Rate 80 87 Respiratory Rate 12 Blood Pressure Pulse Oximetry Pulse Oximetry [Exertion on Room Air] 88 L Pulse Oximetry [Exertion with Oxygen] 95 Pulse Oximetry [Resting on Room Air] 95 Pulse Oximetry [Resting with Oxygen] 97 Intake & Output 09/22/17 09/23/17 09/23/17 18:59 06:59 18:59 Intake Total 720 / 720 120 / 120 Output Total 1400 / 1400 1400 / 1400 Balance -680 / -680 -1280 / -1280 Weight 75.5 kg Intake: Oral 720 / 720 120 / 120 Output: Urine 1400 / 1400 1400 / 1400 Other: Date of Last Bowel Movement 09/22/17 Narrative: GENERAL: Awake alert and oriented talkative and cooperative appears to be in some moderate distress SKIN: Warm and dry. HEAD: Atraumatic. Normocephalic. EYES: Pupils equal and round. No scleral icterus. No injection or drainage. EOMI ENT: No nasal bleeding or discharge. Mucous membranes pink and moist. Tongue is midline NECK: Trachea midline. No JVD. CARDIOVASCULAR: Regular rate and rhythm. S1-S2 no S3 or S4.. 3 out of 6 murmur RESPIRATORY: No accessory muscle use. Some coarse breath sounds bilaterally. breath sounds equal bilaterally. GASTROINTESTINAL: Abdomen soft, non-tender, nondistended. Hepatic and splenic margins not palpable. MUSCULOSKELETAL: Extremities without clubbing, cyanosis, or edema. No obvious deformities. NEUROLOGICAL: Awake and alert. No obvious cranial nerve deficits. Motor grossly within normal limits. Five out of 5 muscle strength in the arms and legs. Normal speech. PSYCHIATRIC: Appropriate mood and affect; insight and judgment normal. Results - Labs CBC & Chem 7: 09/23/17 04:57 09/23/17 04:57 Laboratory Results - last 24 hr 09/22/17 09/23/17 09/23/17 05:25 04:57 04:57 WBC 10.9 RBC 3.98 L Hgb 13.2 Hct 39.6 MCV 99.6 MCH 33.2 MCHC 33.3 RDW 14.3 Plt Count 218 MPV 9.9 Prelim Diff (Auto) Slide review pending Neut % (Auto) 64.2 Lymph % (Auto) 22.2 Mckinley % (Auto) 7.8 Eos % (Auto) 4.7 H Baso % (Auto) 1.1 Neut # (Auto) 7.0 Lymph # (Auto) 2.4 Mckinley # (Auto) 0.8 Eos # (Auto) 0.5 H Baso # (Auto) 0.1 WBC Differential . Diff Scan Auto diff confirmed Differential Comment . Sodium 139 Potassium 3.8 Chloride 106 Carbon Dioxide 22.4 Anion Gap 11 BUN 12 Creatinine 0.81 Estimated GFR 70 L Random Glucose 85 Hemoglobin A1c 4.9 Calcium 8.8 Phosphorus 4.6 Magnesium 2.1 Total Bilirubin 0.5 AST 17 ALT 16 Alkaline Phosphatase 124 H Total Protein 6.7 Albumin 3.3 L - Imaging Impressions Chest CT 09/22/17 00:00 CONCLUSION: 1. Fairly extensive calcification of the aortic annulus and valvular leaflets. 2. The aortic root measures 3.1 cm in size. 3. The tubular portion of the ascending aorta measures 3.4 cm. - Procedures NONE Assessment and Plan - Plan Severe aortic stenosis will consult cardiology as well as cardiovascular surgery patient may be a candidate for TAVR-IN PROCESS OF BEING WORKED UP Pulmonary fibrosis continue on neb treatments as needed and oxygen and Mucinex Congestive heart failure due to severe aortic stenosis Lasix LOW DOSE IV Mild leukocytosis a.m. labs Elevated troponin trend troponins will get a repeat echo I did discuss with cardiology AGAIN TODAY 8-1 8-2 WILL DC TO HOME TODAY ON HOME OXYGEN 2L BY [facility] FAILED WALK TEST NEEDS HOME OXYGEN Sleep apnea with chronic oxygen use Incentive spirometry Dyspnea continue with oxygen and Mucinex duo nebs History of breast cancer recently treated with radiation DVT AND GI PROPHYLAXIS DC TO HOME TODAY FOLLOW UP WITH PCP AND [facility] Code Status: FULL CODE Discussed Condition With: RN AND PT AND CM AND [facility] Discharge Planning: DC TO HOME TODAY
--- NOTE | 2017-09-23 15:07 | P.DS ---
Date of admission: 09/21/17 15:34 Primary care physician: UNKNOWN Attending physician on discharge: Alan Shell Anticipated date of discharge: 09/23/17 Brief History from admission: Patient is a 72-year-old female who presented emergency department for evaluation of worsening shortness of breath that has been worsened with exertion and worse with lying flat that has been going on for at least the past month. Patient states she was seen by her cow tester Dr. White who recommended that she come to the hospital. She was recommended to come to the hospital to see a thoracic surgeon. Patient states she knows she needs an aortic valve replacement. She had previously had a pig valve replacement back in 2010. But this is not working as well anymore. She had a bronchoscopy with Dr. LIVIER martinez, who states that she was the best she is going to be to have any procedures. Patient has recently been diagnosed with pulmonary fibrosis. As well as has recently been treated for breast cancer with radiation. Patient has been seen by myself as well as cardiology today. Has been noted to have decreased oxygenation. This been moderate. And progressively worsening it is relieving with rest and sitting upright. It is worse by laying flat and exertion. Has a known history of aortic valve issues. Past medical history significant for breast cancer as well as pulmonary fibrosis and chronic shortness of breath and sleep apnea. Patient is also recently had cardiac catheterization with clean coronaries. DS: Diagnosis - Discharge Diagnosis (1) Respiratory failure Status: Chronic (2) Aortic stenosis Status: Acute (3) Elevated troponin Status: Acute (4) Pulmonary fibrosis Status: Chronic DS: Medications - Discharge Medications Prescriptions: aspirin 325 mg PO DAILY #30 tab guaifenesin [Mucinex] 600 mg PO BID #60 tab ipratropium-albuterol 1 amp NEB Q2HR NEB PRN #120 amp PRN Reason: Shortness Of Breath ipratropium-albuterol 1 amp NEB Q6HR WHILE AWAKE NEB #120 amp nitroglycerin [Nitrostat] 0.4 mg SUBLINGUAL Q5M PRN #100 tab PRN Reason: Angina pravastatin 40 mg PO DAILY #30 tab rivaroxaban [Xarelto] 15 mg PO DAILY #30 tab DS: Summary Hospital Course: Patient is a 72-year-old female who presented emergency department for evaluation of worsening shortness of breath that has been worsened with exertion and worse with lying flat that has been going on for at least the past month. Patient states she was seen by her cow tester Dr. White who recommended that she come to the hospital. She was recommended to come to the hospital to see a thoracic surgeon. Patient states she knows she needs an aortic valve replacement. She had previously had a pig valve replacement back in 2010. But this is not working as well anymore. She had a bronchoscopy with Dr. MAIER service, who states that she was the best she is going to be to have any procedures. Patient has recently been diagnosed with pulmonary fibrosis. As well as has recently been treated for breast cancer with radiation. Patient has been seen by myself as well as cardiology today. Has been noted to have decreased oxygenation. This been moderate. And progressively worsening it is relieving with rest and sitting upright. It is worse by laying flat and exertion. Has a known history of aortic valve issues. Past medical history significant for breast cancer as well as pulmonary fibrosis and chronic shortness of breath and sleep apnea. Patient is also recently had cardiac catheterization with clean coronaries. 8-1 HAVING TAVR WORK UP SEEN BY CARDIO AND CARDIOVASCULAR SURGERY AM LABS BREATHING A LITTLE BETTER HAD REPEAT ECHO HERE 8-2 HAS BEEN CLEARED BY ALL FOR DC DC TO HOME FOLLOW UP WITH PCP FOLLOW UP WITH [facility] ON NEXT WEDNESDAY NEEDS HOME OXYGEN 2L BY NAKUL ODEN RN AND [facility] AND [facility] AND CM AND PT - Time Spent with Patient Total time spent providing and/or coordinating discharge services: Greater than 30 minutes Exam Vital signs: Vital Signs 09/22/17 15:00 09/22/17 15:45 09/22/17 15:47 Temperature 98.0 F Pulse Rate 77 79 80 Respiratory Rate 18 Blood Pressure 116/94 H Pulse Oximetry 94 L Pulse Oximetry [Exertion on Room Air] Pulse Oximetry [Exertion with Oxygen] Pulse Oximetry [Resting on Room Air] Pulse Oximetry [Resting with Oxygen] 09/22/17 17:00 09/22/17 18:00 09/22/17 19:00 Temperature Pulse Rate 86 88 91 H Respiratory Rate Blood Pressure Pulse Oximetry Pulse Oximetry [Exertion on Room Air] Pulse Oximetry [Exertion with Oxygen] Pulse Oximetry [Resting on Room Air] Pulse Oximetry [Resting with Oxygen] 09/22/17 19:38 09/22/17 20:00 09/22/17 21:00 Temperature 97.6 F Pulse Rate 84 96 H 92 H Respiratory Rate 18 20 Blood Pressure 123/73 Pulse Oximetry 96 95 Pulse Oximetry [Exertion on Room Air] Pulse Oximetry [Exertion with Oxygen] Pulse Oximetry [Resting on Room Air] Pulse Oximetry [Resting with Oxygen] 09/22/17 22:00 09/22/17 23:00 09/23/17 00:00 Temperature 98.2 F Pulse Rate 74 71 70 Respiratory Rate 18 Blood Pressure 124/68 Pulse Oximetry 98 Pulse Oximetry [Exertion on Room Air] Pulse Oximetry [Exertion with Oxygen] Pulse Oximetry [Resting on Room Air] Pulse Oximetry [Resting with Oxygen] 09/23/17 01:00 09/23/17 02:00 09/23/17 03:00 Temperature Pulse Rate 74 74 67 Respiratory Rate Blood Pressure Pulse Oximetry Pulse Oximetry [Exertion on Room Air] Pulse Oximetry [Exertion with Oxygen] Pulse Oximetry [Resting on Room Air] Pulse Oximetry [Resting with Oxygen] 09/23/17 04:00 09/23/17 05:00 09/23/17 06:00 Temperature 98.1 F Pulse Rate 68 72 73 Respiratory Rate 16 Blood Pressure 120/66 Pulse Oximetry 97 Pulse Oximetry [Exertion on Room Air] Pulse Oximetry [Exertion with Oxygen] Pulse Oximetry [Resting on Room Air] Pulse Oximetry [Resting with Oxygen] 09/23/17 07:00 09/23/17 08:00 09/23/17 09:00 Temperature 97.8 F Pulse Rate 67 81 84 Respiratory Rate 24 Blood Pressure 121/65 Pulse Oximetry 92 L Pulse Oximetry [Exertion on Room Air] Pulse Oximetry [Exertion with Oxygen] Pulse Oximetry [Resting on Room Air] Pulse Oximetry [Resting with Oxygen] 09/23/17 10:00 09/23/17 11:00 09/23/17 12:00 Temperature 98.1 F Pulse Rate 94 H 79 78 Respiratory Rate 24 Blood Pressure 110/58 L Pulse Oximetry 95 Pulse Oximetry [Exertion on Room Air] Pulse Oximetry [Exertion with Oxygen] Pulse Oximetry [Resting on Room Air] Pulse Oximetry [Resting with Oxygen] 09/23/17 13:00 09/23/17 13:31 09/23/17 13:58 Temperature Pulse Rate 80 87 Respiratory Rate 12 Blood Pressure Pulse Oximetry Pulse Oximetry [Exertion on Room Air] 88 L Pulse Oximetry [Exertion with Oxygen] 95 Pulse Oximetry [Resting on Room Air] 95 Pulse Oximetry [Resting with Oxygen] 97 Intake & Output 09/22/17 09/23/17 09/23/17 18:59 06:59 18:59 Intake Total 720 / 720 120 / 120 Output Total 1400 / 1400 1400 / 1400 Balance -680 / -680 -1280 / -1280 Weight 75.5 kg Intake: Oral 720 / 720 120 / 120 Output: Urine 1400 / 1400 1400 / 1400 Other: Date of Last Bowel Movement 09/22/17 Narrative: GENERAL: Awake alert and oriented talkative and cooperative appears to be in some moderate distress SKIN: Warm and dry. HEAD: Atraumatic. Normocephalic. EYES: Pupils equal and round. No scleral icterus. No injection or drainage. EOMI ENT: No nasal bleeding or discharge. Mucous membranes pink and moist. Tongue is midline NECK: Trachea midline. No JVD. CARDIOVASCULAR: Regular rate and rhythm. S1-S2 no S3 or S4.. 3 out of 6 murmur RESPIRATORY: No accessory muscle use. Some coarse breath sounds bilaterally. breath sounds equal bilaterally. GASTROINTESTINAL: Abdomen soft, non-tender, nondistended. Hepatic and splenic margins not palpable. MUSCULOSKELETAL: Extremities without clubbing, cyanosis, or edema. No obvious deformities. NEUROLOGICAL: Awake and alert. No obvious cranial nerve deficits. Motor grossly within normal limits. Five out of 5 muscle strength in the arms and legs. Normal speech. PSYCHIATRIC: Appropriate mood and affect; insight and judgment normal. Results Procedures completed during hospitalization: NONE Completed studies during hospitalization: Laboratory Results WBC 10.9 th/mm3 (4.0-11.0) 09/23/17 04:57 RBC 3.98 mil/mm3 (4.00-5.30) L 09/23/17 04:57 Hgb 13.2 gm/dL (11.6-15.3) 09/23/17 04:57 Hct 39.6 % (35.0-46.0) 09/23/17 04:57 MCV 99.6 fL (80.0-100.0) 09/23/17 04:57 MCH 33.2 pg (27.0-34.0) 09/23/17 04:57 MCHC 33.3 % (32.0-36.0) 09/23/17 04:57 RDW 14.3 % (11.6-17.2) 09/23/17 04:57 Plt Count 218 th/mm3 (150-450) 09/23/17 04:57 MPV 9.9 fL (7.0-11.0) 09/23/17 04:57 Prelim Diff (Auto) Slide review pending 09/23/17 04:57 Neut % (Auto) 64.2 % (16.0-70.0) 09/23/17 04:57 Lymph % (Auto) 22.2 % (9.0-44.0) 09/23/17 04:57 [place] % (Auto) 7.8 % (0.0-8.0) 09/23/17 04:57 Eos % (Auto) 4.7 % (0.0-4.0) H 09/23/17 04:57 Baso % (Auto) 1.1 % (0.0-2.0) 09/23/17 04:57 Neut # (Auto) 7.0 th/mm3 (1.8-7.7) 09/23/17 04:57 Lymph # (Auto) 2.4 th/mm3 (1.0-4.8) 09/23/17 04:57 [place] # (Auto) 0.8 th/mm3 (0.0-0.9) 09/23/17 04:57 Eos # (Auto) 0.5 th/mm3 (0.0-0.4) H 09/23/17 04:57 Baso # (Auto) 0.1 th/mm3 (0.0-0.2) 09/23/17 04:57 WBC Differential . 09/23/17 04:57 Diff Scan Auto diff confirmed 09/23/17 04:57 Differential Comment . 09/23/17 04:57 PT 10.0 sec (9.8-11.6) 09/22/17 05:25 INR 1.0 Ratio 09/22/17 05:25 APTT 21.6 sec (24.3-30.1) L 09/21/17 13:18 Sodium 139 meq/L (136-145) 09/23/17 04:57 Potassium 3.8 meq/L (3.5-5.1) 09/23/17 04:57 Chloride 106 meq/L (98-107) 09/23/17 04:57 Carbon Dioxide 22.4 meq/L (21.0-32.0) 09/23/17 04:57 Anion Gap 11 meq/L (5-15) 09/23/17 04:57 BUN 12 mg/dL (7-18) 09/23/17 04:57 Creatinine 0.81 mg/dL (0.50-1.00) 09/23/17 04:57 Estimated GFR 70 mL/min (>89) L 09/23/17 04:57 POC Glucose 140 mg/dl (68-110) H 09/21/17 20:04 Random Glucose 85 mg/dL (74-106) 09/23/17 04:57 Hemoglobin A1c 4.9 % (4.3-6.0) 09/22/17 05:25 Calcium 8.8 mg/dL (8.5-10.1) 09/23/17 04:57 Phosphorus 4.6 mg/dL (2.5-4.9) 09/23/17 04:57 Magnesium 2.1 mg/dL (1.5-2.5) 09/23/17 04:57 Total Bilirubin 0.5 mg/dL (0.2-1.0) 09/23/17 04:57 AST 17 U/L (15-37) 09/23/17 04:57 ALT 16 U/L (10-53) 09/23/17 04:57 Alkaline Phosphatase 124 U/L (45-117) H 09/23/17 04:57 Total Creatine Kinase 49 U/L (26-192) 09/22/17 05:25 Troponin I 0.90 ng/mL (0.02-0.05) H* 09/22/17 05:25 B-Natriuretic Peptide 200 pg/mL (0-100) H 09/21/17 13:18 Total Protein 6.7 g/dL (6.4-8.2) 09/23/17 04:57 Albumin 3.3 g/dL (3.4-5.0) L 09/23/17 04:57 TSH 1.020 uIU/mL (0.358-3.740) 09/22/17 05:25 Free T4 1.01 ng/dL (0.76-1.46) 09/22/17 05:25 Urine Color Yellow (Yellw/Straw) 09/22/17 04:26 Urine Clarity Clear (Clear) 09/22/17 04:26 Urine pH 5.0 (5.0-8.5) 09/22/17 04:26 Ur Specific [place] 1.017 (1.002-1.035) 09/22/17 04:26 Urine Protein Negative mg/dL (Neg-Trace) 09/22/17 04:26 Urine Glucose (UA) Negative mg/dL (Negative) 09/22/17 04:26 Urine Ketones Negative mg/dL (Negative) 09/22/17 04:26 Urine Occult Blood Small (Negative) H 09/22/17 04:26 Urine Nitrate Negative (Negative) 09/22/17 04:26 Urine Bilirubin Negative (Negative) 09/22/17 04:26 Urine Urobilinogen Less than 2 mg/dL (Less than 2) 09/22/17 04:26 Ur Leukocyte Esterase Negative (Negative) 09/22/17 04:26 Urine RBC Less than 1 /hpf (0-3) 09/22/17 04:26 Urine WBC 7 /hpf (0-5) H 09/22/17 04:26 Ur Squamous Epith Cells 2 /hpf (0-5) 09/22/17 04:26 Hyaline Casts 1 /lpf (0-3) 09/22/17 04:26 Urine Mucus Few /lpf (Occasional) H 09/22/17 04:26 Micro UA Comment Culture not ind 09/22/17 04:26 Urine Culture Comments Culture not ind 09/22/17 04:26 Impressions Chest X-Ray 09/21/17 13:12 CONCLUSION: No acute findings. Chest CT 09/22/17 00:00 CONCLUSION: 1. Fairly extensive calcification of the aortic annulus and valvular leaflets. 2. The aortic root measures 3.1 cm in size. 3. The tubular portion of the ascending aorta measures 3.4 cm. Labs on day of discharge: Labs from last 24 hours 09/23/17 09/23/17 09/22/17 04:57 04:57 05:25 WBC 10.9 RBC 3.98 L Hgb 13.2 Hct 39.6 MCV 99.6 MCH 33.2 MCHC 33.3 RDW 14.3 Plt Count 218 MPV 9.9 Prelim Diff (Auto) Slide review pending Neut % (Auto) 64.2 Lymph % (Auto) 22.2 [place] % (Auto) 7.8 Eos % (Auto) 4.7 H Baso % (Auto) 1.1 Neut # (Auto) 7.0 Lymph # (Auto) 2.4 [place] # (Auto) 0.8 Eos # (Auto) 0.5 H Baso # (Auto) 0.1 WBC Differential . Diff Scan Auto diff confirmed Differential Comment . Sodium 139 Potassium 3.8 Chloride 106 Carbon Dioxide 22.4 Anion Gap 11 BUN 12 Creatinine 0.81 Estimated GFR 70 L Random Glucose 85 Hemoglobin A1c 4.9 Calcium 8.8 Phosphorus 4.6 Magnesium 2.1 Total Bilirubin 0.5 AST 17 ALT 16 Alkaline Phosphatase 124 H Total Protein 6.7 Albumin 3.3 L - Impressions ITS Impressions Chest X-Ray 09/21/17 13:12 CONCLUSION: No acute findings. Chest CT 09/22/17 00:00 CONCLUSION: 1. Fairly extensive calcification of the aortic annulus and valvular leaflets. 2. The aortic root measures 3.1 cm in size. 3. The tubular portion of the ascending aorta measures 3.4 cm. Discharge Plan - Discharge Disposition Patient Disposition: Discharge Home - Discharge Condition Condition: Good - Discharge Order Discharge Orders: Discharge Order (Routine); Ordered 09/23/17 Ordered By: Alan Shell - Discharge Details Anticipated Discharge Date: 09/23/17 Discharge Comment: DC TO HOME - Physicians Team Primary Care Provider: UNKNOWN, Attending Provider: Alan Shell Other Providers: Jimenez Gold MD ; Ella Huang MD ; [employer]
[2017-09-23 16:46] VITALS: BP 122/77; PULSE 80; RESP 24; TEMP 98
== END 2017-09-23 18:30 | disposition home or self-care (01) ==
LOC: HCIS 12:26 → NEPE 12:26 → NEDA 15:34 → INTOOBSV 15:34 → HCIS 18:34
PROVIDERS: ADMIT Hospitalist; ATTEND Hospitalist

== ENCOUNTER 2017-10-01 05:20 | Inpatient (IN) ==
[2017-10-01] MEDS ORDERED: Chlorhexidine Gluconate 2% 1 Pack (2 Cloths) TOPICAL SCH (05:45)
[2017-10-01] MEDS ORDERED: Aspirin 325 MG Tablet PO ONE (05:45)
[2017-10-01] MEDS ORDERED: Sod Chloride 0.9% Inj 1,000 ML IV.SIG SCH (06:00)
[2017-10-01] MEDS ORDERED: ceFAZolin Inj 2,000 MG in Sodium Chlor 0.9% Inj 100 ML IV.SIG SCH (06:00)
[2017-10-01] MEDS ORDERED: Sodium Chlor 0.9% Inj 500 ML IV.SIG SCH (06:00)
[2017-10-01 06:38] LABS: Baso # (Auto) 0.1 th/mm3 (0.0-0.2); Baso % (Auto) 1.2 % (0.0-2.0); Eos # (Auto) 0.8 th/mm3 (0.0-0.4); Eos % (Auto) 7.9 % (0.0-4.0); Hemoglobin 12.7 gm/dL (11.6-15.3); Lymph # (Auto) 1.8 th/mm3 (1.0-4.8); Lymph % (Auto) 17.8 % (9.0-44.0); Mean Corpuscular HGB Conc 35.3 % (32.0-36.0); Mean Corpuscular Hemoglobin 34.2 pg (27.0-34.0); Mean Platelet Volume 9.3 fL (7.0-11.0); Mono # (Auto) 0.7 th/mm3 (0.0-0.9); Mono % (Auto) 7.1 % (0.0-8.0); Neut # (Auto) 6.7 th/mm3 (1.8-7.7); Platelet Count 223 th/mm3 (150-450); Red Blood Count 3.71 mil/mm3 (4.00-5.30); Red Cell Distribution Width 14.2 % (11.6-17.2); White Blood Count 10.1 th/mm3 (4.0-11.0)
[2017-10-01] MEDS ORDERED: Protamine Sulfate Inj 50 MG/5 ML Vial ONE (06:48)
[2017-10-01 06:49] LABS: Activated Partial Thrombo Time 24.5 sec (24.3-30.1); Prothrombin Time 9.8 sec (9.8-11.6)
[2017-10-01 06:56] LABS: Calcium 8.8 mg/dL (8.5-10.1); Carbon Dioxide 23.9 meq/L (21.0-32.0)
[2017-10-01] MEDS ORDERED: ceFAZolin 2 GM Premix Inj 2 GM/50 ML PIGGYBACK IV.SIG SCH (07:00)
--- NOTE | 2017-10-01 08:22 | MH ---
cc: Mani Zamora MD DATE OF ADMISSION: 10/01/2017 INDICATION: Severe aortic valve stenosis. HISTORY OF PRESENT ILLNESS: This is a 72-year-old female with a past medical history of severe aortic valve stenosis, status post bioprosthetic aortic valve Mosaic 25 back in 2010. The patient also has a diagnosis of pulmonary fibrosis, obstructive sleep apnea, and history of breast cancer. She has had symptoms of progressive worsening dyspnea follows with Dr. White in the outpatient setting, recently underwent cardiac catheterization, which showed no significant obstructive disease, but her valve area was 0.4 cm2. The patient was evaluated by cardiothoracic surgery and felt to be intermediate risk for surgical aortic valve replacement, particularly given redo sternotomy. The patient is now scheduled for transcatheter aortic valve replacement. PAST MEDICAL HISTORY: Severe symptomatic aortic stenosis, pulmonary fibrosis, obstructive sleep apnea. FAMILY HISTORY: Denies any family history of early coronary artery disease or sudden cardiac . SOCIAL HISTORY: Reports only occasional alcohol use. No tobacco use. MEDICATIONS: See medication reconciliation. ALLERGIES: NO KNOWN DRUG ALLERGIES. REVIEW OF SYSTEMS: A 12-point review of system was performed and is negative unless otherwise as noted in the history of present illness. PHYSICAL EXAM: VITAL SIGNS: Temperature is 98, pulse 79, blood pressure 127/83 mmHg. GENERAL: Alert and oriented x 3 in no acute distress. HEENT: Exam shows pupils are reactive to light and accommodation. Extraocular movements are intact. NECK: No elevation of jugular venous distention. No thyromegaly, lymphadenopathy. No carotid bruits. LUNGS: Clear to auscultation bilaterally. CARDIOVASCULAR: Irregularly with a 3/6 crescendo/decrescendo murmur at the right upper sternal border. ABDOMEN: Nontender, nondistended with good bowel sounds. No hepatosplenomegaly. EXTREMITIES: No clubbing, cyanosis or edema. Good peripheral pulses. NEUROLOGIC: Cranial nerves intact. Motor and sensory grossly intact. LABORATORY DATA: WBC 10.1, hemoglobin 12.7, platelet count is 223. INR is 1. Sodium 143, potassium 4.0, chloride is 110, BUN is 14, creatinine 0.95. PREOPERATIVE WORKUP: STS score of 4.6%. [employer] functional class 3/4. BMI is 30. She is 3/4 frail. EKG shows sinus rhythm, occasional premature atrial complexes, left ventricular hypertrophy. Pulmonary function tests reveal FEV1 of 1.40. Echocardiogram from 09/22/2017 shows a jet velocity of 5.3 meters per second, mean gradient of 67 mmHg, calculated valve area is 0.33 cm2. Ejection fraction 60 to 65%. Cardiac catheterization from 08/31/2017 shows mild luminal irregularities, but quite tortuous vessels. Computed tomography analysis from 09/22/2017 shows annular ring diameter 20.5 mm, annular area is 413.8 mm. Left coronary height of 7.9 mm. Sinus of Valsalva 31.2 mm, sinotubular junction, 34.4 mm, right coronary height 13.0 mm. Minimal luminal diameter on the right is 6.9 mm, on the left, 6.6 mm in the iliac arteries. ASSESSMENT/PLAN: Severe symptomatic aortic stenosis with [employer] Functional Class 3-4 symptoms. There is a Mosaic 25 mm bioprosthetic aortic valve present from 2010. Risks, benefits, and alternatives have been discussed with the patient. The patient was evaluated by both Dr. Huang and Dr. Hutchinson and felt to be intermediate surgical risk for reoperation related to the aortic valve. She has elected to proceed with transcatheter aortic valve replacement. We will plan to use a 23 mm Casey S3 AYDIN valve with coronary protection. Mani Zamora MD NOVA/DL , 08:01 AM , 08:10 AM
[2017-10-01] MEDS: Heparin 10,000 UNITS/10 ML Vial (for IV use) ONE ×2 (08:56→09:19)
[2017-10-01] MEDS ORDERED: Sugammadex Inj 200 MG/2 ML Vial IV.PUSH ONE (09:34)
[2017-10-01] MEDS ORDERED: Iohexol 300 MG/ML 50 ML Vial (for Rad Diag) IVCONTRAST ONE (09:42)
--- NOTE | 2017-10-01 09:53 | P.OP ---
- Preoperative Diagnosis (1) Diastolic CHF (2) Aortic stenosis - Postoperative Diagnosis (1) Aortic stenosis (2) Diastolic CHF Date of procedure: 10/01/17 Procedure: Transcatheter aortic valve replacement with a 23 Denise 3 tissue valve Valve in valve 25 Mosaic Percutaneous bilateral femoral artery access with Perclose closure on the right Percutaneous left femoral vein access Fluoroscopy Selective left main cannulation for protection Implants: 23 Denise 3 tissue valve Anesthesia: GETA Surgeon: Annie Hutchinson MD Co-surgeon - Dr. Zamora Insurance Administrative Assistant: Jimenez Gold Pathology: none sent Operation and Findings: The risks, benefits, complications, treatment options, and expected outcomes were discussed with the patient. The possibilities of reaction to medication, pulmonary aspiration, perforation of viscus, bleeding, recurrent infection, the need for additional procedures, failure to diagnose a condition, and creating a complication requiring transfusion or operation were discussed with the patient. The patient concurred with the proposed plan, giving informed consent. The site of surgery properly noted/marked. The patient was taken to hybrid operating room, identified as Melissa Castro and the procedure verified as Transcatheter Aortic Valve Replacement. A Time Out was held and the above information confirmed. Standard monitoring lines and Mayer catheter were placed. General anesthesia was induced. The patient was prepped and draped in a sterile fashion. Initially, left femoral arterial and venous access was acquired using a Seldinger percutaneous technique. The left main was protected by guide and wire placement from the left side with stent positioning. The details of this procedure were dictated under separate note by cardiology. A temporary transvenous pacemaker wire was placed in the right ventricular apex and tested, the right femoral artery was accessed using a needle followed by a guidewire under fluoroscopic guidance. The patient was heparinized and 2 Perclose devices deployed for later closure. Serial dilators were used to dilate the right femoral artery to 14 [place] caliber. The Casey sheath was then inserted up to the distal abdominal aorta. The old valve was used for positioning the Denise 3. A 23 Casey Denise 3 transcatheter aortic valve was then positioned in the annulus and deployed with the patient being paced at 160 beats per minute. Following deployment, the valve apparatus was withdrawn and arch aortography and MAGGY were performed to assess the valve. The valve had no significant perivalvular leaks. Gradients were then measured and the sheath was removed. Perclose sutures were secured with good hemostasis. Protamine was administered. Sterile dressings were placed. At the end of the operation, all sponge, instruments, and needle counts were correct. The patient was transferred to the CVICU in stable condition. Findings: The left main was not compromised and the patient was very stable throughout the procedure. Complications: none Disposition: to CVICU in stable condition
[2017-10-01] MEDS ORDERED: fentaNYL Citrate Inj 100 MCG/2 ML Ampul ONE (10:13)
[2017-10-01] MEDS ORDERED: hydrALAZINE 50 MG Tablet PO PRN (11:08)
--- NOTE | 2017-10-01 11:28 | ECHRPT ---
Indication: CONCLUSIONS Successful transcatheter aortic valve replacement BP: / HR: Rhythm: Technical Quality: Medications Complications Proc. Components FINDINGS LEFT VENTRICLE Normal left ventricular size and wall thickness. The left ventricular systolic function is normal wi th an estimated ejection fraction in the range of 60-65%. Left ventricular diastolic function parameters a re normal. RIGHT VENTRICLE Normal right ventricular size and systolic function. LEFT ATRIUM The left atrial size is normal. RIGHT ATRIUM The right atrial size is normal. ATRIAL SEPTUM Normal atrial septal thickness without atrial level shunting by limited color doppler interrogation. AORTA The aortic root and proximal ascending aorta are normal in size on limited imaging. MITRAL VALVE Mild thickening of the mitral valve leaflets. Mild mitral valve regurgitation. AORTIC VALVE Severe bioprosthetic aortic valve stenosis Successful deployment of bioprosthetic transcatheter aortic valve No perivalvular leak TRICUSPID VALVE Structurally normal tricuspid valve. No tricuspid valve stenosis or regurgitation. VESSELS The inferior vena cava is normal in size. PULMONARY VALVE The pulmonary valve is not well visualized. PERICADIUM No pericardial effusion. Mani Zamora MD, FACC (Electronically Signed) Final Date:01 October 2017 11:27
--- NOTE | 2017-10-01 11:46 | P.CONCC ---
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 Calculated valve area at this time is less than 0.4 cm and the woman remains symptomatic for disabling shortness of breath. A #23 prosthesis was placed within the #25 porcine valve sewing ring with good result. I met her on her arrival to the cardiovascular ICU where she presents well-perfused with moderate hypertension. She is alert and awake on supplemental oxygen by mask. She does carry a history of pulmonary fibrosis and is on home oxygen normally. I discussed the case in detail with Dr. Zamora at the bedside. [facility] - History History Provided By: Patient - Medical History Medical History: Medical History (Last Updated 10/01/17 @ 06:24 by Klarissa Barreto) COPD (chronic obstructive pulmonary disease) Breast cancer Pulmonary fibrosis Shortness of breath Sleep apnea - Surgical History Surgical History: Surgical History (Last Updated 10/01/17 @ 06:24 by Klarissa Barreto) History of lumpectomy of left breast Aortic valve replaced - Family History Family History: Family History (Last Updated 09/21/17 @ 18:09 by Alan Shell DO) Other Family history of hypertension - Tobacco History Second Hand Smoke Exposure: No Smoking Status: Former smoker - Alcohol History How Often Do You Have a Drink Containing Alcohol: Monthly or less - Substance Use History Substance History: No History of Abuse - Travel History History of Recent Travel: No Medications and Allergies Active Medications: Active Medications Aspirin (Aspirin Chew) 81 mg PO DAILY PREM Chlorhexidine Gluconate (Chlorhexidine 2% Cloth) 3 pack 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 [facility] Stop: 10/04/17 05:44 Clopidogrel Bisulfate (Plavix) 75 mg PO DAILY PREM Ferrous Sulfate (Ferosul) 325 mg PO DAILY PREM Hydralazine HCl (Apresoline) 50 mg PO TID PRN PRN Reason: SBP > 160 mmHg Sodium Chloride (Ns Inj) 1,000 mls @ 125 mls/hr IV.SIG .Q8H PREM Sodium Chloride (Ns Inj) 500 mls @ 30 mls/hr IV.SIG .Q10H PREM Stop: 10/04/17 05:44 Lactated Ringer's (Lr 1000 Ml Inj) 1,000 mls @ 30 mls/hr IV.SIG .Q24H [facility] Stop: 10/04/17 05:44 Cefazolin Sodium/Dextrose (Ancef 2 Gm Premix Inj) 2 gm in 50 mls @ 100 mls/hr IV.SIG STRIPPING AND BOOKING MACHINE OPERATOR [facility] Stop: 10/01/17 18:00 Lisinopril (Prinivil) 20 mg PO DAILY [facility] Povidone Iodine (Betadine 5% Antisepsis Kit) 1 applicatio EACH NARE STRIPPING AND BOOKING MACHINE OPERATOR [facility] Stop: 10/04/17 05:44 Allergies Allergy/AdvReac Type Severity Reaction Status Date / Time No Known Allergies Allergy Verified 10/01/17 06:25 Home Medications Medication Instructions Recorded Confirmed Type anastrozole 1 mg PO DAILY 09/21/17 10/01/17 History Physical Exam Vital signs: Vital Signs 10/01/17 06:19 Temperature 98.2 F Pulse Rate 79 Respiratory Rate 16 Blood Pressure 127/83 Pulse Oximetry 94 L Intake & Output 09/30/17 10/01/17 10/01/17 18:59 06:59 18:59 Intake Total 1400 / 1400 Output Total 300 / 300 Balance 1100 / 1100 Weight 77.8 kg Intake: Anesthesia Amount 1400 / 1400 Output: Estimated Blood Loss 50 / 50 Urine Amount (Catheter) 250 / 250 Indwelling Temp Sensing 250 / 250 Catheter Other: Weight On Admission 77.8 kg Narrative: Physical exam: General: Awake alert conversant. Head: Atraumatic, normal. Neck: Supple airway widely patent no jugular venous distention. Lungs: Clear bilaterally without wheezes or crackles, comfortable respiratory effort. Heart: Normal S1-S2, soft systolic murmur right sternal border. No apical murmur. Abdomen: Soft, no guarding, nondistended. Extremities: Warm, well-perfused. Pulses: Posterior tibial pulses 2+ left and right side. Both groins with no hematoma or swelling. Neuro: Moves 4 limbs to command. Oriented 3, conversant. - Urinary Catheter Management Indwelling Temp Sensing Catheter Cath placed during this visit: yes Reason for continuing: Hourly intake/output Insertion date: 10/01/17 Insertion time: 07:56 Assessment and Plan - Problem List (1) Acute on chronic diastolic CHF (congestive heart failure) Code(s): I50.33 - Acute on chronic diastolic (congestive) heart failure Status : Acute (2) Aortic stenosis Code(s): I35.0 - Nonrheumatic aortic (valve) stenosis Status: Acute (3) Pulmonary fibrosis Code(s): J84.10 - Pulmonary fibrosis, unspecified Status: Chronic (4) Diastolic CHF Code(s): I50.30 - Unspecified diastolic (congestive) heart failure Status: Acute - Assessment and Plan Plan: Plan: 1. Maintain blood pressure less than 140 systolic using continuous infusion calcium channel nguyen. 2. Supplemental oxygen to keep sats greater than 90%. 3. Wean to nasal cannula quickly. 4. Encourage incentive spirometry. 5. Plavix now. 6. Diuretic now. 7. Bed rest for 6 hours. 8. Remove temporary ventricular pacing wire after review by Dr. Lennon, electrophysiology. Overall impression: This woman is warm and well-perfused following a valve in valve TAVR. She requires immediate intravenous blood pressure control but otherwise is doing well. We will follow with you closely. (2) Aortic stenosis Qualifiers: Cardiac valve disease etiology: etiology unspecified Qualified Code(s): I35.0 - Nonrheumatic aortic (valve) stenosis
[2017-10-01] MEDS ORDERED: Lidocaine PF 1% Inj 5 ML Syringe INFILTRATN ONE (12:00)
[2017-10-01] MEDS ORDERED: Phenylephrine/NS 1000 MCG/10ML Syringe IV.PUSH ONE (12:00)
[2017-10-01] MEDS ORDERED: Nitroglycerin Drip Premix 50 MG/250 ML BOTTLE IV.SIG ONE (12:00)
--- NOTE | 2017-10-01 12:21 | MA ---
cc: Mani Zamora MD DATE: 10/01/2017 INDICATIONS: Transcatheter aortic valve replacement. MIXING PAN TENDER: Mani Zamora MD, [facility] SECOND ELECTRICAL CONTROLS ENGINEER: Jimenez Gold MD PRIMARY SURGEON: Annie Hutchinson MD PROCEDURE: 1. Bioprosthetic transcatheter replacement with Casey 23 mm DENISE S3 valve. 2. Coronary angiography. 3. Transesophageal echocardiography. 4. Temporary transvenous pacemaker placement. 5. Left heart catheterization. METHOD: Risks, benefits, and alternatives were discussed with the patient. The patient understood and consented to the procedure. DESCRIPTION OF PROCEDURE: The patient was brought to catheterization lab and placed on the catheterization table. The right groin was prepped and draped in sterile fashion. The left groin was anesthetized with 2% lidocaine. A 6-Tuvaluan sheath was placed in the left common femoral artery and a 5-Tuvaluan 11 cm sheath was placed in the vein. Right common femoral access was obtained. An 8-Tuvaluan sheath was placed without difficulty. The transesophageal echocardiography; to be detailed in a separate report. TEMPORARY TRANSVENOUS PACEMAKER PLACEMENT: 5-Tuvaluan balloon tipped temporary transvenous pacemaker was advanced to the right internal jugular sheath to the level of the right ventricle. Appropriate pacing and capture was confirmed. CORONARY ANGIOGRAPHY: Left coronary cyclic circulation selectively engaged a 6-Tuvaluan XBLAD 3.5 guide catheter. 1. Left main coronary artery is widely patent. 2. left anterior descending coronary artery is tortuous, but patent. 3. Left circumflex is tortuous, but patent. A 0.014 x 108 cm Terumo RunThrough wire was navigated down to the distal first diagonal branch. A 4.0 x 9-millimeter bare-metal stent was advanced into the left anterior descending coronary artery as potential coronary protection with valve deployment, but was not utilized and removed at the completion of the procedure, along with the guide catheter and the wire. TRANSCATHETER AORTIC VALVE REPLACEMENT: A 6-Tuvaluan AL1 guide catheter was advanced to ascending aorta. A 0.035 inch straight tip, 260 cm wire was then advanced through the AL1 guide catheter. The wire was advanced across the aortic valve with great deal of time and effort due to severity stenosis. AL1 catheter was advanced into the left ventricle. A 0.035 inch, 260 cm standard J wire was advanced to the apex of the left ventricle. AL1 catheter removed. A 5-Tuvaluan pigtail catheter was advanced to the apex and the wire removed. A [employer] Confida wire was then advanced to the apex of the left ventricle and a pigtail catheter removed. The mosaic valve radiopaque markers were then lined up in a parallax plane with a good view of all 3 markers. The 23 mm DENISE S3 bioprosthetic valve was then advanced to the ascending aorta and across the aortic valve and positioned appropriately. Under rapid pacing, the valve was then slowly deployed with good seating and no paravalvular leak. Repeat angiography of the left coronary revealed no compromise. All devices were removed. Both arch arteries were closed with Perclose devices. Left venous sheath was closed with a Vascade device. POST VALVE DEPLOYMENT INTRAOPERATIVE TRANSESOPHAGEAL ECHOCARDIOGRAM RESULTS: 1. Posterior aortic valve area 1.0 cm2. 2. Post-implant mean aortic valve gradient 10 mmHg. 3. Post-implant peak valve velocity 2.216 meters per second. 4. No aortic insufficiency noted. CONCLUSIONS: Successful [id number] deployment bioprosthetic transcatheter aortic valve using an Casey Denise S3. PLAN: The patient will be monitored closely for any postprocedural complications. Hopefully, this will translate to symptomatic improvement. Right now will initiate aspirin and Plavix. We will monitor closely. If there was no bleeding will transition her back to her Xarelto and aspirin upon discharge. Will have electrophysiology evaluate the patient today and obtain a limited 2D echocardiogram. MD NOVA Song/ch/ll , 10:10 AM , 10:21 AM [email or web address]
[2017-10-01] MEDS ORDERED: Clevidipine Inj 25 MG/50 ML VIAL IV.CONT PRN (12:30)
--- NOTE | 2017-10-01 14:31 | ECG ---
Date Performed: 10/01/2017 Time Performed: 06:46:30 PTAGE: 72 years EKG: Sinus rhythm . Cannot rule out anterior infarct - age undetermined Left ventricular hypertrophy Lateral ST-T newell es are probably due to ventricular hypertrophy Abnormal ECG Since the PREVIOUS TRACING , no significant change noted PREVIOUS TRACIN09/21/2017 22.26 DOCTOR: Abraham Burgos Interpretating Date/Time 10/01/2017 14:29:55
[2017-10-01] MEDS: Acetaminophen 325 MG Tablet PO PRN ×2 (19:09→22:55)
[2017-10-01] MEDS: Lisinopril 20 MG Tablet PO SCH (19:09)
--- NOTE | 2017-10-01 21:52 | MB ---
cc: Russel Sesay MD,Mani Gold,Jimenez Suárez MD DATE: 10/01/2017 REASON FOR CONSULTATION: Evaluation for possible pacing post TAVR. HISTORY OF PRESENT ILLNESS: Ms. Castro is a 72-year-old female with severe aortic stenosis, history of pulmonary fibrosis, COPD, status post TAVR, consulted for evaluation. The chart was reviewed. The patient was evaluated. ALLERGIES: NONE REPORTED. SOCIAL HISTORY: Negative for smoking and drinking. FAMILY HISTORY: Noncontributory to her current medical condition. MEDICATIONS: She is currently on acetaminophen, aspirin 81 mg a day, Plavix 75 mg a day, hydralazine p.r.n., lisinopril 20 mg a day. REVIEW OF SYSTEMS: She referred no chest pain, no chest discomfort, feeling fine, no fever. PHYSICAL EXAMINATION: GENERAL: Alert, fully oriented, talking with family. Jugular area with central line with V pacing. CARDIOVASCULAR: S1, S2. No gallop. No murmur. ABDOMEN: Soft, obese. No mass. EXTREMITIES: No edema. DIAGNOSTIC DATA: Electrocardiogram shows sinus rhythm, diffuse ST changes. LABORATORY DATA: Hemoglobin 12.7, white blood cells 10.1. INR 1.0. Potassium 4.0, creatinine 0.95. ASSESSMENT AND RECOMMENDATIONS: Ms. Castro is doing well. She is eating, talking with her son and her , alert, fully oriented. She has a normal ejection fraction. Electrocardiogram pre and post transcatheter aortic valve replacement showed no significant change. She has intermittent ventricular pacing. Because of that, I disconnected the pacemaker. At this point, my recommendation is to continue current management. No need for pacing support. The patient can be discharged home whenever it is okay with the managing team. MD LEILANI López/jordan , 06:51 PM , 06:58 PM
[2017-10-02 04:37] LABS: Hematocrit 31.9 % (35.0-46.0); Hemoglobin 11.2 gm/dL (11.6-15.3); Mean Corpuscular Hemoglobin 34.2 pg (27.0-34.0); Mean Corpuscular Volume 97.7 fL (80.0-100.0); Mean Platelet Volume 9.2 fL (7.0-11.0); Platelet Count 174 th/mm3 (150-450); Red Blood Count 3.26 mil/mm3 (4.00-5.30); Red Cell Distribution Width 14.1 % (11.6-17.2); White Blood Count 10.4 th/mm3 (4.0-11.0)
[2017-10-02 04:50] LABS: Alanine Aminotransferase 17 U/L (10-53); Albumin 3.1 g/dL (3.4-5.0); Anion Gap 8 meq/L (5-15); Aspartate Aminotransferase 35 U/L (15-37); Blood Urea Nitrogen 12 mg/dL (7-18); Calcium 8.2 mg/dL (8.5-10.1); Carbon Dioxide 29.4 meq/L (21.0-32.0); Chloride 106 meq/L (98-107); Glomerular Filtration Rate 68 mL/min (>89); Glucose,Random 89 mg/dL (74-106); Magnesium 2.2 mg/dL (1.5-2.5); Potassium 3.6 meq/L (3.5-5.1); Sodium 143 meq/L (136-145)
[2017-10-02 04:53] LABS: Alkaline Phosphatase 103 U/L (45-117); Total Protein 5.9 g/dL (6.4-8.2)
--- NOTE | 2017-10-02 08:36 | ECG ---
Date Performed: 10/01/2017 Time Performed: 16:03:46 PTAGE: 72 years EKG: Sinus rhythm Demand pacing Left ventricular hypertrophy Anterolateral ST-T changes may be due to hypertrophy and/ or ischemia Abnormal ECG NO PREVIOUS TRACING DOCTOR: Mani Zamora Interpretating Date/Time 10/02/2017 08:35:59
[2017-10-02] MEDS: Ferrous Sulfate 325 MG Tablet PO SCH (09:31)
[2017-10-02] MEDS: Lisinopril 20 MG Tablet PO SCH (09:31)
--- NOTE | 2017-10-02 09:50 | ECG ---
Date Performed: 10/02/2017 Time Performed: 05:24:36 PTAGE: 72 years EKG: Sinus rhythm with borderline 1st degree A-V block Cannot rule out anteroseptal infarct - age undetermined LVH wit h secondary repolarization abnormality Inferior/lateral ST-T changes may be due to hypertrophy and/or ischemia Abnormal ECG PREVIOUS TRACING : 10/01/2017 16.03 DOCTOR: Mani Zamora Interpretating Date/Time 10/02/2017 09:49:07
--- NOTE | 2017-10-02 10:43 | P.PNCA ---
Subjective Interval history: No events overnight. Patient is feeling well. TV pacemaker removed by Dr Sesay. Patient is now ambulatory with no chest pain, dypnea, orthopnea. RIJ venous sheath and Right radial A-line removed. Echocardiogram ordered for today. Physical Exam Vital signs: Vital Signs 10/01/17 11:00 10/01/17 12:00 10/01/17 12:01 Temperature 97.8 F 98 F Pulse Rate 84 91 H Respiratory Rate 16 16 Blood Pressure 134/59 L 117/52 L Pulse Oximetry 97 94 L 98 10/01/17 12:02 10/01/17 12:43 10/01/17 15:00 Temperature 97.8 F 98.1 F Pulse Rate 79 91 H 83 Respiratory Rate 20 15 16 Blood Pressure 117/52 L 125/53 L Pulse Oximetry 95 94 L 10/01/17 19:00 10/01/17 22:44 10/01/17 23:00 Temperature 97.7 F 98.1 F Pulse Rate 78 81 Respiratory Rate 20 20 Blood Pressure 130/57 L 139/60 Pulse Oximetry 97 10/02/17 03:00 10/02/17 07:00 Temperature 98.2 F 98.3 F Pulse Rate 77 75 Respiratory Rate 16 16 Blood Pressure 110/46 L 128/59 L Pulse Oximetry 96 Intake & Output 10/01/17 10/02/17 10/02/17 18:59 06:59 18:59 Intake Total 1400 / 1400 Output Total 2290 / 2290 Balance -890 / -890 Intake: Anesthesia Amount 1400 / 1400 Output: Estimated Blood Loss 50 / 50 Urine Amount (Catheter) 2240 / 2240 Indwelling Temp Sensing 2240 / 2240 Catheter Other: Date of Last Bowel Movement 09/30/17 Narrative: Physical exam: General: Awake alert conversant. Head: Atraumatic, normal. Neck: Supple airway widely patent no jugular venous distention. Lungs: Clear bilaterally without wheezes or crackles, comfortable respiratory effort. Heart: Normal S1-S2, soft systolic murmur right sternal border. No apical murmur. Abdomen: Soft, no guarding, nondistended. Extremities: Warm, well-perfused. Pulses: Posterior tibial pulses 2+ left and right side. Both groins with no hematoma or swelling. Neuro: Moves 4 limbs to command. Oriented 3, conversant. - Urinary Catheter Management Indwelling Temp Sensing Catheter Cath placed during this visit: yes Reason for continuing: Hourly intake/output Insertion date: 10/01/17 Insertion time: 07:56 Assessment and Plan - Plan Assessment: severe s/p TAVR [id number] 23mm Casey Denise S3, POD 1, stable Pulmonary Fibrosis on home O2 COPD, stable Recommendation: -echocardiogram today -continue home medications with change of ASA to 81mg daily with Xarelto 15mg daily -f/u with 30 day post-op echo with primary director selection and administration Dr White. -ok for d/c home today.
--- NOTE | 2017-10-02 12:00 | P.PNCV ---
- Note CVT: Post Op Day #: 1 Subjective/Hospital Course: Doing well s/p TAVR. No complaints Objective: Vital Signs - 24 hr 10/01/17 12:00 10/01/17 12:01 10/01/17 12:02 Temperature 98 F Pulse Rate 91 H 79 Respiratory Rate 16 20 Blood Pressure 117/52 L Pulse Oximetry 94 L 98 10/01/17 12:43 10/01/17 15:00 10/01/17 19:00 Temperature 97.8 F 98.1 F 97.7 F Pulse Rate 91 H 83 78 Respiratory Rate 15 16 20 Blood Pressure 117/52 L 125/53 L 130/57 L Pulse Oximetry 95 94 L 10/01/17 22:44 10/01/17 23:00 10/02/17 03:00 Temperature 98.1 F 98.2 F Pulse Rate 81 77 Respiratory Rate 20 16 Blood Pressure 139/60 110/46 L Pulse Oximetry 97 10/02/17 07:00 Temperature 98.3 F Pulse Rate 75 Respiratory Rate 16 Blood Pressure 128/59 L Pulse Oximetry 96 Labs: Laboratory Results - last 12 hr 10/01/17 10/02/17 10/02/17 06:10 04:13 04:13 WBC 10.4 RBC 3.26 L Hgb 11.2 L Hct 31.9 L MCV 97.7 MCH 34.2 H MCHC 35.0 RDW 14.1 Plt Count 174 MPV 9.2 Sodium 143 Potassium 3.6 Chloride 106 Carbon Dioxide 29.4 Anion Gap 8 BUN 12 Creatinine 0.83 Estimated GFR 68 L Random Glucose 89 Calcium 8.2 L Magnesium 2.2 Total Bilirubin 0.6 AST 35 ALT 17 Alkaline Phosphatase 103 Total Protein 5.9 L Albumin 3.1 L Blood Type A Positive Antibody Screen Negative MTS Gel Crossmatch See Detail Result Diagrams: 10/02/17 04:13 10/02/17 04:13 Cardiovascular: RRR Telemetry: NSR Pulmonary: CTA GI/: NABS, NT - Plan (2) Aortic stenosis Advance diet ambulate Clear to discharge home from my standpoint D/C per primary service (2) Aortic stenosis Qualifiers: Cardiac valve disease etiology: etiology unspecified Qualified Code(s): I35.0 - Nonrheumatic aortic (valve) stenosis
--- NOTE | 2017-10-02 12:09 | P.PNCC ---
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 Calculated valve area at this time is less than 0.4 cm and the woman remains symptomatic for disabling shortness of breath. A #23 prosthesis was placed within the #25 porcine valve sewing ring with good result. I met her on her arrival to the cardiovascular ICU where she presents well-perfused with moderate hypertension. She is alert and awake on supplemental oxygen by mask. She does carry a history of pulmonary fibrosis and is on home oxygen normally. I discussed the case in detail with Dr. Zamora at the bedside. 10/02: Blood pressure control good on lisinopril, initiated by cardiology service yesterday. Breathing comfortably. Well perfused. Awaiting ECHO. Objective Vital Signs / I&O: Vital Signs 10/01/17 12:43 10/01/17 15:00 10/01/17 19:00 Temperature 97.8 F 98.1 F 97.7 F Pulse Rate 91 H 83 78 Respiratory Rate 15 16 20 Blood Pressure 117/52 L 125/53 L 130/57 L Pulse Oximetry 95 94 L 10/01/17 22:44 10/01/17 23:00 10/02/17 03:00 Temperature 98.1 F 98.2 F Pulse Rate 81 77 Respiratory Rate 20 16 Blood Pressure 139/60 110/46 L Pulse Oximetry 97 10/02/17 07:00 Temperature 98.3 F Pulse Rate 75 Respiratory Rate 16 Blood Pressure 128/59 L Pulse Oximetry 96 Intake & Output 10/01/17 10/02/17 10/02/17 18:59 06:59 18:59 Intake Total 1400 / 1400 Output Total 2290 / 2290 Balance -890 / -890 Intake: Anesthesia Amount 1400 / 1400 Output: Estimated Blood Loss 50 / 50 Urine Amount (Catheter) 2240 / 2240 Indwelling Temp Sensing 2240 / 2240 Catheter Other: Date of Last Bowel Movement 09/30/17 Result Diagrams: 10/02/17 04:13 10/02/17 04:13 Objective Remarks: Narrative: Physical exam: General: Awake alert conversant. Calm. Head: Atraumatic, normal. Neck: Supple airway widely patent and without obstructive noises. Lungs: Clear bilaterally without wheezes or crackles, comfortable respiratory effort. Heart: Normal S1-S2, soft systolic murmur right sternal border. No JVD. Abdomen: Soft, no guarding, nondistended. Bowel sounds active. Extremities: Warm, well-perfused. Pulses: Posterior tibial pulses 2+ bilateral. Both groins with no hematoma or swelling. Neuro: Moves 4 limbs to command. Oriented 3, conversant. Alert. Assessment and Plan - Problem List (1) Acute on chronic diastolic CHF (congestive heart failure) Code(s): I50.33 - Acute on chronic diastolic (congestive) heart failure Status : Acute (2) Aortic stenosis Code(s): I35.0 - Nonrheumatic aortic (valve) stenosis Status: Acute (3) Pulmonary fibrosis Code(s): J84.10 - Pulmonary fibrosis, unspecified Status: Chronic (4) Diastolic CHF Code(s): I50.30 - Unspecified diastolic (congestive) heart failure Status: Acute - Assessment and Plan Plan: Plan: 1. Continue lisinopril at discharge. 2. Supplemental oxygen as needed to keep sats greater than 90%. 3. Wean to nasal cannula quickly. 4. Encourage incentive spirometry. 5. Start oral anticoagulant. 6. Reduce aspirin to 81 mg daily. 7. PT eval. Overall impression: This woman remains warm and well-perfused following a valve- in-valve TAVR. Her initial problem with hypertension was resolved quickly and her breathing has remained comfortable overnight. (2) Aortic stenosis Qualifiers: Cardiac valve disease etiology: etiology unspecified Qualified Code(s): I35.0 - Nonrheumatic aortic (valve) stenosis
--- NOTE | 2017-10-02 13:56 | P.PNCA ---
Subjective Interval history: Intervention follow up for Dr. Gold Up to the chair, mildly dizzy with standing Blood pressure 90/50 No chest pain/SOB Diuresed off 1 Liter yesterday Physical Exam Vital signs: Vital Signs 10/01/17 15:00 10/01/17 19:00 10/01/17 22:44 Temperature 98.1 F 97.7 F Pulse Rate 83 78 Respiratory Rate 16 20 Blood Pressure 125/53 L 130/57 L Pulse Oximetry 94 L 97 10/01/17 23:00 10/02/17 03:00 10/02/17 07:00 Temperature 98.1 F 98.2 F 98.3 F Pulse Rate 81 77 75 Respiratory Rate 20 16 16 Blood Pressure 139/60 110/46 L 128/59 L Pulse Oximetry 96 10/02/17 07:55 Temperature Pulse Rate Respiratory Rate Blood Pressure Pulse Oximetry 96 Intake & Output 10/01/17 10/02/17 10/02/17 18:59 06:59 18:59 Intake Total 1400 / 1400 Output Total 2290 / 2290 Balance -890 / -890 Intake: Anesthesia Amount 1400 / 1400 Output: Estimated Blood Loss 50 / 50 Urine Amount (Catheter) 2240 / 2240 Indwelling Temp Sensing 2240 / 2240 Catheter Other: Date of Last Bowel Movement 09/30/17 Narrative: Physical exam: General: Awake alert conversant. Head: Atraumatic, normal. Neck: Supple airway widely patent no jugular venous distention. Lungs: Clear bilaterally without wheezes or crackles, comfortable respiratory effort. Heart: Normal S1-S2, soft systolic murmur right sternal border. No apical murmur. Abdomen: Soft, no guarding, nondistended. Extremities: Warm, well-perfused. Pulses: Posterior tibial pulses 2+ left and right side. Both groins with no hematoma or ecchymosis. Neuro: Moves 4 limbs to command. Oriented 3, conversant. - Urinary Catheter Management Indwelling Temp Sensing Catheter Cath placed during this visit: yes Reason for continuing: Hourly intake/output Insertion date: 10/01/17 Insertion time: 07:56 Assessment and Plan - Assessment (1) S/P TAVR (transcatheter aortic valve replacement) Code(s): Z95.2 - Presence of prosthetic heart valve Status: Acute (2) Acute on chronic diastolic CHF (congestive heart failure) Code(s): I50.33 - Acute on chronic diastolic (congestive) heart failure Status : Acute (3) Aortic stenosis Code(s): I35.0 - Nonrheumatic aortic (valve) stenosis Status: Acute (4) Pulmonary fibrosis Code(s): J84.10 - Pulmonary fibrosis, unspecified Status: Chronic - Plan 1) Severe s/p TF TAVR [id number] 23mm S3 POD #1 Doing well, other than blood pressure mildly low with some dizziness Diuresed yesterday around a 1Liter, no signs of CHF, will plan to bolus small dose of NS Xarelto/Plavix on discharge 2) Pulmonary fibrosis on home O2 3) Await echo 4) Will reevaluate later, but most likely watch overnight due to hypotension before sending home Discussed with Dr. Hutchinson 5) On discharge follow up with Dr. White (3) Aortic stenosis Qualifiers: Cardiac valve disease etiology: etiology unspecified Qualified Code(s): I35.0 - Nonrheumatic aortic (valve) stenosis
[2017-10-02] MEDS ORDERED: Sodium Chlor 0.9% Inj 250 ML IV.SIG ONE (14:00)
--- NOTE | 2017-10-02 14:59 | ECHRPT ---
Indication: Heart Failure CONCLUSIONS Limited echo post TAVR The left ventricular systolic function is low normal with an estimated ejection fraction in the rang e of 50- 55%. Moderate concentric left ventricular hypertrophy. Normal left ventricular size. Aortic valve mean gradient is 31 mmHg. No aortic valve regurgitation. Prosthetic AoV not perfectly visualized, but appears well functioning. BP: / HR: Rhythm: MEASUREMENTS (Male / Female) Normal Values Technical Quality:Technically difficult study 2D ECHO LV Diastolic Diameter PLAX 4.3 cm 4.2 - 5.9 / 3.9 - 5.3 cm LV Systolic Diameter PLAX 3.2 cm IVS Diastolic Thickness 1.5 cm 0.6 - 1.0 / 0.6 - 0.9 cm LVPW Diastolic Thickness 1.3 cm 0.6 - 1.0 / 0.6 - 0.9 cm LV Relative Wall Thickness 0.7 RV Internal Dim ED PLAX 2.8 cm LVOT Diameter 1.8 cm LA Systolic Diameter LX 3.7 cm 3.0 - 4.0 / 2.7 - 3.8 cm DOPPLER AV Peak Velocity 350.0 cm/s AV Peak Gradient 49.0 mmHg AV Mean Gradient 31.0 mmHg AV Velocity Time Integral 65.4 cm LVOT Peak Velocity 116.0 cm/s LVOT Peak Gradient 5.4 mmHg LVOT Velocity Time Integral 24.2 cm AV Area Cont Eq vti 0.9 cm AV Area Cont Eq pk 0.8 cm FINDINGS LEFT VENTRICLE The left ventricular systolic function is low normal with an estimated ejection fraction in the rang e of 50- 55%. Moderate concentric left ventricular hypertrophy. Normal left ventricular size. AORTIC VALVE Aortic valve mean gradient is 31 mmHg. No aortic valve regurgitation. Joseph Bray MD (Electronically Signed) Final Date:02 October 2017 14:58
[2017-10-03 07:32] VITALS: BP 105/63
[2017-10-03] MEDS: Ferrous Sulfate 325 MG Tablet PO SCH (09:47)
[2017-10-03] MEDS: Lisinopril 20 MG Tablet PO SCH (09:48)
[2017-10-03 11:11] VITALS: PULSE 88
[2017-10-03 11:13] VITALS: RESP 16; TEMP 98.9; O2SAT 97
--- NOTE | 2017-10-03 11:29 | P.DS ---
Date of admission: 10/01/17 05:20 Primary care physician: Mk Collins Attending physician on discharge: Mani Zamora Anticipated date of discharge: 10/03/17 Brief History from admission: 72y/o female presents with exertional dyspnea and severe symptomatic aortic stenosis s/p 25 Mosaic tissue valve placement ~2009. DS: Diagnosis - Discharge Diagnosis (1) Acute on chronic diastolic CHF (congestive heart failure) Status: Acute (2) Aortic stenosis Status: Acute (3) Pulmonary fibrosis Status: Chronic Diagnosis: Secondary DS: Medications - Discharge Medications Prescriptions: clopidogrel [Plavix] 75 mg PO DAILY #30 tab DS: Summary Hospital Course: She underwent uncomplicated valve in valve TAVR with a 23 Denise 3 tissue valve and is ready for discharge on POD 2. - Time Spent with Patient Total time spent providing and/or coordinating discharge services: Greater than 30 minutes - Quality: AMI Clinical Trial Participant: No Exam Vital signs: Vital Signs 10/02/17 12:00 10/02/17 15:07 10/02/17 15:11 Temperature 97.9 F Pulse Rate 83 83 Respiratory Rate 17 Blood Pressure 118/60 Pulse Oximetry 93 L 93 L 10/02/17 18:23 10/02/17 20:00 10/02/17 21:58 Temperature 98.8 F Pulse Rate 78 77 84 Respiratory Rate 20 18 20 Blood Pressure 112/63 Pulse Oximetry 98 10/03/17 00:00 10/03/17 04:00 10/03/17 07:28 Temperature 98.1 F 98.0 F Pulse Rate 80 91 H 67 Respiratory Rate 18 20 Blood Pressure 112/63 114/54 L Pulse Oximetry 94 L 96 10/03/17 07:32 10/03/17 07:39 10/03/17 09:47 Temperature 98.0 F Pulse Rate 67 84 Respiratory Rate 16 18 Blood Pressure 105/63 Pulse Oximetry 96 96 10/03/17 11:11 10/03/17 11:12 Temperature 98.9 F Pulse Rate 88 88 Respiratory Rate 16 Blood Pressure 105/63 Pulse Oximetry 97 Intake & Output 10/02/17 10/03/17 10/03/17 18:59 06:59 18:59 Intake Total 1150 / 1150 480 / 480 Output Total 700 / 700 900 / 900 Balance 450 / 450 -420 / -420 Weight 77.5 kg Intake: IV 250 / 250 NS Inj 250 ML @ Wide Open IV. 250 / 250 SIG BOLUS ONE Rx#:[id number] Oral 900 / 900 480 / 480 Output: Urine 700 / 700 900 / 900 Other: # Voids 3 Date of Last Bowel Movement 09/30/17 # Bowel Movements 0 0 - Constitutional no acute distress - Routine HEENT Exam Head: Present: normocephalic, atraumatic Eye: Present: EOMI, PERRL, normal accommodation ENT: Present: mucous membranes moist - Routine Neck Exam Present: supple - Routine Respiratory Exam Present: CTA bilaterally - Routine Cardiovascular Exam Present: RRR - Routine Abdominal Exam Present: soft, normoactive bowel sounds - Routine Extremities Exam Present: pulses intact - Routine Skin Exam Present: intact - Routine Neurological Exam Present: alert, oriented X3, CN II-XII intact Results Procedures completed during hospitalization: TAVR as above Completed studies during hospitalization: ECHO TAVR Discharge Plan - Discharge Disposition Patient Disposition: Discharge Home - Discharge Condition Condition: Stable - Discharge Order Discharge Orders: Discharge Order (Routine); Ordered 10/03/17 Ordered By: Annie Hutchinson - Discharge Details Anticipated Discharge Date: 10/03/17 - Physicians Team Primary Care Provider: Mk Collins Attending Provider: Mani Zamora Other Providers: Jimenez Gold MD ; Rolando Bustos MD ; Derrick Hudson DO ; Eusebio Kaplan - Rxs /Orders / Referrals /Forms Prescriptions: New clopidogrel [Plavix] 75 mg Tablet 75 mg PO DAILY Qty: 30 RF: 3 ipratropium-albuterol 0.5 mg-3 mg(2.5 mg base)/3 mL Solution For Nebulization 1 amp NEB Q2HR NEB PRN (Reason: sob, wheezing) RF: 0 Continue anastrozole 1 mg Tablet 1 mg PO DAILY guaifenesin [Mucinex] 600 mg Tablet Extended Release 12hr 600 mg PO BID Qty: 60 RF: 0 pravastatin 40 mg Tablet 40 mg PO DAILY Qty: 30 rivaroxaban [Xarelto] 15 mg Tablet 15 mg PO DAILY Qty: 30 RF: 0 Discontinued aspirin 325 mg Tablet 325 mg PO DAILY Qty: 30 RF: 0 ipratropium-albuterol 0.5 mg-3 mg(2.5 mg base)/3 mL Solution For Nebulization 1 amp NEB Q2HR NEB PRN (Reason: Shortness Of Breath) Qty: 120 RF: 0 ipratropium-albuterol 0.5 mg-3 mg(2.5 mg base)/3 mL Solution For Nebulization 1 amp NEB Q6HR WHILE AWAKE NEB Qty: 120 RF: 0 nitroglycerin [Nitrostat] 0.4 mg Tablet, Sublingual 0.4 mg Sublingual Q5M PRN (Reason: Angina) Qty: 100 RF: 0 Referrals: Mani Zamora MD [Physician] - See Instructions Mk Collins MD [Primary Care Provider] - See Instructions - Discharge Instructions Patient Printed Instructions: Clopidogrel (By mouth), Heart Healthy Diet (DC), Transcatheter Aortic Valve Replacement (DC) Additional Instructions: 30 Day TAVR ECHO 11/01/17 2:[address] [address] 30-DAY FOLLOW UP TAVR DR Debbie WALKER 11/04/17 3:[address] [address] 1 YEAR TAVR FOLLOW UP ECHO [address] [address] 1 [address] T[address]R FOLLOW UP [address] WALKER [address] [address] 1. no tub baths, no swimming in the pool until groin incisions are healed 2. no bending,no heavy lifting more than a gallon of juice 3. ok to take shower starting tomorrow , may remove the dressings from the groin , wash with antibacterial liquid soap, rinse with running water and pat it dry , may apply band aid for comfort 4. watch out for signs of infection like redness, increasing tenderness, presence of drainage, elevated temp >101 and call the doctor closure device bookletss given to pt.
[2017-10-03] MEDS ORDERED: Iohexol 350 MG/ML 50 ML Vial (for Cath Lab) IVCONTRAST ONE (11:45)
--- NOTE | 2017-10-03 15:51 | P.PNCA ---
Subjective Interval history: No events overnight Blood pressure better Up and ambulating without problems Physical Exam Vital signs: Vital Signs 10/02/17 18:23 10/02/17 20:00 10/02/17 21:58 Temperature 98.8 F Pulse Rate 78 77 84 Respiratory Rate 20 18 20 Blood Pressure 112/63 Pulse Oximetry 98 10/03/17 00:00 10/03/17 04:00 10/03/17 07:28 Temperature 98.1 F 98.0 F Pulse Rate 80 91 H 67 Respiratory Rate 18 20 Blood Pressure 112/63 114/54 L Pulse Oximetry 94 L 96 10/03/17 07:32 10/03/17 07:39 10/03/17 09:47 Temperature 98.0 F Pulse Rate 67 84 Respiratory Rate 16 18 Blood Pressure 105/63 Pulse Oximetry 96 96 10/03/17 11:11 10/03/17 11:12 Temperature 98.9 F Pulse Rate 88 88 Respiratory Rate 16 Blood Pressure 105/63 Pulse Oximetry 97 Intake & Output 10/02/17 10/03/17 10/03/17 18:59 06:59 18:59 Intake Total 1150 / 1150 480 / 480 Output Total 700 / 700 900 / 900 Balance 450 / 450 -420 / -420 Weight 77.5 kg Intake: IV 250 / 250 NS Inj 250 ML @ Wide Open IV. 250 / 250 SIG BOLUS ONE Rx#:[id number] Oral 900 / 900 480 / 480 Output: Urine 700 / 700 900 / 900 Other: # Voids 3 Date of Last Bowel Movement 09/30/17 # Bowel Movements 0 0 Narrative: Physical exam: General: Awake alert conversant. Head: Atraumatic, normal. Neck: Supple airway widely patent no jugular venous distention. Lungs: Clear bilaterally without wheezes or crackles, comfortable respiratory effort. Heart: Normal S1-S2, 2/6 crescendo-decrescendo to the RSB. No apical murmur. Abdomen: Soft, no guarding, nondistended. Extremities: Warm, well-perfused. Pulses: Posterior tibial pulses 2+ left and right side. Both groins with no hematoma or ecchymosis. Neuro: Moves 4 limbs to command. Oriented 3, conversant. - Urinary Catheter Management Indwelling Temp Sensing Catheter Cath placed during this visit: yes Reason for continuing: Hourly intake/output Insertion date: 10/01/17 Insertion time: 07:56 Assessment and Plan - Assessment (1) S/P TAVR (transcatheter aortic valve replacement) Code(s): Z95.2 - Presence of prosthetic heart valve Status: Acute (2) Acute on chronic diastolic CHF (congestive heart failure) Code(s): I50.33 - Acute on chronic diastolic (congestive) heart failure Status : Acute (3) Aortic stenosis Code(s): I35.0 - Nonrheumatic aortic (valve) stenosis Status: Acute (4) Pulmonary fibrosis Code(s): J84.10 - Pulmonary fibrosis, unspecified Status: Chronic - Plan 1) Severe s/p TF TAVR [id number] 23mm S3 POD #2 Doing well, blood pressure better, no dizziness D/C Lisinopril Xarelto/Plavix on discharge 2) Pulmonary fibrosis on home O2 3) EF 50-55%, TAVR mean grad 31 4) Cardiovascularly stable for discharge On discharge follow up with Dr. White Progress Note: Quality - AMI Clinical Trial Participant: No (3) Aortic stenosis Qualifiers: Cardiac valve disease etiology: etiology unspecified Qualified Code(s): I35.0 - Nonrheumatic aortic (valve) stenosis
== END 2017-10-03 11:46 | disposition home or self-care (01) ==
LOC: HSDI 05:20 → HDIC 05:30 → HCVI 10:07
PROVIDERS: ADMIT Internal Medicine; ATTEND Internal Medicine
PROC: TAVRHYB (ICD-10-PCS; 2017-10-01 07:30)